=== PATIENT | male | born 1960 | race Caucasian/White ===

== ENCOUNTER 2023-01-05 20:29 | Inpatient (IN) | payer OTHER, SELFPAY ==
--- NOTE | ~2023-01-05 | CT_ITS ---
EXAMINATION: CT foot RT w con DATE: 01/06/2023 00:12 INDICATION: Right foot pain, soft tissue gas radiographs TECHNIQUE: Computed tomography (CT) of the right foot was performed without intravenous contrast. The dose-length product (DLP) was 446.34 mGy-cm. Automated exposure control and iterative reconstruction technique were employed. COMPARISON: None FINDINGS: There is a plantar soft tissue ulcer of the foot near the fourth metatarsophalangeal joint. Soft tissue gas extends dorsally between the fourth and fifth distal metatarsals into the soft tissu es adjacent dorsal soft tissues between the fourth and fifth metatarsophalangeal joints. A small amou nt of gas extends proximally along the shaft of the fourth metatarsal. No specific findings of osteom yelitis are seen. No fracture is identified. Mild osteoarthritis is noted. Posterior and plantar calc aneal enthesophytes are noted. IMPRESSION: 1. Plantar soft tissue ulcer of the foot near the fourth and fifth metatarsal phalangeal joints with soft tissue gas extending into the dorsal foot near the metatarsophalangeal joints. No specific findi ngs of osteomyelitis. Reviewed, dictated and finalized at location A. IMPRESSION: 1. Plantar soft tissue ulcer of the foot near the fourth and fifth metatarsal p halangeal joints with soft tissue gas extending into the dorsal foot near the m etatarsophalangeal joints. No specific findings of osteomyelitis.
--- NOTE | ~2023-01-05 | CT_ITS ---
Clinical Indication: Sepsis, atrial fibrillation CT Scan of the Chest with Contrast: Technique: Contiguous sections were acquired throughout the chest after intravenous administration of 100 cc of Omnipaque 350. Dose reduction technique was used on this scan by utilizing automated expos ure control and iterative reconstruction technique. The dose-length product (DLP) was 1029.57 mGy-cm. Findings: There is no evidence of any significant mediastinal, hilar or axillary lymphadenopathy. There is no f illing defect in the pulmonary arterial tree to suggest pulmonary embolus. There is no evidence of ao rtic dissection or aneurysm. No pericardial effusion. There is an 8 mm nodule in the superior segment left lower lobe. There is a focal groundglass opacity in the lingula (axial image 57). There is probable minimal left pleural fluid and minimal left basil ar atelectasis. Images through the upper abdomen reveal probable splenomegaly. Impression: No evidence of pulmonary embolus, aortic dissection, or aortic aneurysm. 8mm nodule in the superior segment of the left lower lobe. According to Fleischner Society criteria, for a low-risk patient, recommend follow-up CT scan at 6-12 months, then consider additional 18-[address] For a high-risk patients, follow-up CT scans at both 6-12 months and 18-24 months are recomme nded. Focal groundglass opacity lingula, nonspecific. Correlate for focal atelectasis versus pneumonitis. Probable splenomegaly. Minimal left pleural fluid. Reviewed, dictated and finalized at [facility]. Impression: No evidence of pulmonary embolus, aortic dissection, or aortic aneurysm. 8mm nodule in the superior segment of the left lower lobe. According to Fleisch ner Society criteria, for a low-risk patient, recommend follow-up CT scan at 6- 12 months, then consider additional 18-[address] For a high-risk patients, f ollow-up CT scans at both 6-12 months and 18-24 months are recommended. Focal groundglass opacity lingula, nonspecific. Correlate for focal atelectasis versus pneumonitis. Probable splenomegaly. Minimal left pleural fluid.
--- NOTE | ~2023-01-05 | XR_ITS ---
EXAMINATION: XR chest 1V portable DATE: 01/05/2023 21:57 INDICATION: Sepsis. Shortness of breath. TECHNIQUE: A single frontal view of the chest was obtained. COMPARISON: None. FINDINGS: There is mild atelectasis in left lower lung zone. No pleural effusion or pneumothorax. The heart size is normal. IMPRESSION: 1. Mild atelectasis in left lower lung zone. Reviewed, dictated and finalized at location E.
--- NOTE | ~2023-01-05 | CT_ITS ---
EXAMINATION: CT brain wo con DATE: 01/05/2023 22:21 INDICATION: Fall. Weakness. TECHNIQUE: Computed tomography (CT) of the head was performed without intravenous contrast. The mA wa s adjusted according to patient size. Iterative reconstruction technique was employed. The dose-lengt h product was 681.00 mGy-cm. COMPARISON: None FINDINGS: There is no intracranial hemorrhage, acute infarction, or abnormal intracranial mass lesion . There is an empty sella. The ventricles are normal in size. There is mild mucosal thickening in the paranasal sinuses. The mastoid air cells are normal. The orbits are normal. IMPRESSION: 1. No acute intracranial pathology. Reviewed, dictated and finalized at location E.
--- NOTE | ~2023-01-05 | US_ITS ---
Duplex Sonography of the bilateral lower extremities: Indication: High-risk for DVT, swelling Sagittal and transverse B-mode images as well as color-flow imaging were performed on the right and l eft femoral and popliteal veins. B-mode examination was done without and with compression in the tra nsverse plane. There is good visualization of the bilateral common femoral, proximal profunda femora l, superficial femoral, greater saphenous, and popliteal veins. Normal flow was seen on color-flow im aging. Normal compressibility was demonstrated. Visualized calf veins are patent bilaterally. Impression: No evidence of deep vein thrombosis involving either lower extremity. Reviewed, dictated and finalized at location M. Impression: No evidence of deep vein thrombosis involving either lower extremit y.
--- NOTE | ~2023-01-05 | CT_ITS ---
EXAMINATION: CT foot RT wo con DATE: 01/09/2023 16:51 INDICATION: Right foot abscess TECHNIQUE: High resolution computed tomography (CT) of the right foot was performed without intraveno us contrast. Additional sagittal and coronal reconstructions were performed. Automated exposure contr ol and iterative reconstruction technique were employed. The dose-length product was 486.94 mGy-cm. COMPARISON: CT dated 01/06/2023 FINDINGS: There is a large ulceration extending across the plantar aspect of the forefoot level of the head of the first through the fourth metatarsals. There is large amount of soft tissue gas tracking deep to t he ulceration along the lateral side of the fourth metatarsophalangeal joint and into the soft tissue s dorsal to the space between the heads of the fourth and fifth metatarsals and dorsal to the head of the fourth proximal phalanx. No loculated fluid collections to suggest abscess. There appear to be c ortical erosions at the lateral side of the head of the fourth metatarsal and lateral base of the fou rth proximal phalanx which is suspicious for osteomyelitis. 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 There are subarticular lucencies at the medial an d mid cuneiforms at the base of the fourth and fifth metatarsals which could represent subchondral cy stic change or potentially erosions such as in the setting of gout. Moderate-sized and plantar calcan eal spur and small Achilles calcaneal spur. Additional enthesophytes along the dorsal aspect of the n avicula. Moderate diffuse fatty atrophy of the intrinsic musculature of the foot along with extensive vascular calcification is likely related to known history of diabetes. IMPRESSION: 1. Large plantar sided ulceration in the forefoot with persistent extensive gas tracking dorsally int o the soft tissues about the fourth webspace, base of the fourth toe and head of the fourth metatarsa l. No discrete abscess identified. 2. New osteolysis at the lateral aspect of the head of the fourth metatarsal and base of the fourth p roximal phalanx suspicious for osteomyelitis. Reviewed, dictated and finalized at location A. IMPRESSION: 1. Large plantar sided ulceration in the forefoot with persistent extensive gas tracking dorsally into the soft tissues about the fourth webspace, base of the fourth toe and head of the fourth metatarsal. No discrete abscess identified. 2. New osteolysis at the lateral aspect of the head of the fourth metatarsal an d base of the fourth proximal phalanx suspicious for osteomyelitis.
--- NOTE | ~2023-01-05 | XR_ITS ---
EXAMINATION: XR foot RT 2V DATE: 01/05/2023 21:58 INDICATION: Right foot pain. Diabetic ulcer. TECHNIQUE: 2 views of right foot were obtained. COMPARISON: None. FINDINGS: Bone alignment is normal. No fracture. There is mild osteoarthritis of second proximal inte rphalangeal joint. There are enthesophytes at the posterior and plantar aspects of calcaneal tuberosi ty. There is an ulcer at the plantar aspect of the forefoot. There is soft tissue gas between the fou rth and fifth metatarsals and proximal phalanges. IMPRESSION: 1. No specific evidence of osteomyelitis. Reviewed, dictated and finalized at location E.
--- NOTE | ~2023-01-05 | XR_ITS ---
EXAMINATION: XR foot LT 2V DATE: 01/05/2023 21:58 INDICATION: Left foot pain. Diabetic ulcer. TECHNIQUE: 2 views of left foot were obtained. COMPARISON: None. FINDINGS: Bone alignment is normal. No fracture. There is mild osteoarthritis of talonavicular joint. There are enthesophytes at the posterior and plantar aspects of calcaneal tuberosity. IMPRESSION: 1. No evidence of osteomyelitis. Reviewed, dictated and finalized at location E.
[2023-01-05 20:32] VITALS: BP 94/52; PULSE 100; RESP 12; TEMP 38.7; O2SAT 94
--- NOTE | 2023-01-05 21:26 | ECG_ITS ---
Measurements Intervals [place] Rate: 95 P: CT: 0 QRS: -3 QRSD: 94 T: 91 QT: 337 QTc: 425 Interpretive Statements ATRIAL FIBRILLATION DELAYED PRECORDIAL R/S TRANSITION BASELINE ARTIFACT- I, II, III ABNORMAL ECG NO PREVIOUS ECG AVAILABLE FOR COMPARISON Electronically Signed On 01-06-2023 7:54:54 CDT by Sagar Hernandez D.O.
[2023-01-05 21:40] LABS: Basophils Percent Auto 0.1 % (0.2-1.2); Eosinophils Absolute Auto 0.1 K/mm3 (0-0.3); Eosinophils Percent Auto 0.7 % (0-4.4); Hematocrit 24.8 % (42.0-52.0); Hemoglobin 7.3 g/dL (14.0-18.0); Immature Granulocyte Absolute 0.14 K/mm3 (0.00-0.031); Immature Granulocyte Percent A 0.9 % (0-0.5); Lymphocytes Absolute Auto 0.68 K/mm3 (0.9-3.2); Lymphocytes Percent Auto 4.5 % (18.3-44.2); Mean Corpuscular HGB Conc 29.4 g/dl (32-36); Mean Corpuscular Volume 84.9 fl (80-100); Mean Platelet Volume 9.2 fl (7.4-10.4); Monocytes Absolute Auto 0.9 K/mm3 (0.1-0.6); Monocytes Percent Auto 5.6 % (2.6-8.5); Neutrophils Absolute Auto 13.4 K/mm3 (1.3-6.7); Neutrophils Percent Auto 88.2 % (45.5-73.1); Platelet Count Result 227 k/mm3 (150-375); Red Blood Count 2.92 M/mm3 (4.6-6.20); Red Cell Distribution Width 15.1 % (11.5-14.5); White Blood Count 15.2 K/mm3 (4.5-10.0)
[2023-01-05 21:45] VITALS: BP 112/79; PULSE 87; RESP 18; O2SAT 98
[2023-01-05 21:50] LABS: INR 1.3; Lactic Acid Reflex 2.8 mmol/L (0.7-2.0); Prothrombin Time 16.8 Seconds (11.1-14.7)
[2023-01-05 21:51] LABS: Partial Thromboplastin Time 35.8 SECONDS (22.3-36.8)
[2023-01-05 21:55] LABS: Alanine Aminotransferase 17 U/L (6-50); Albumin Level 3.2 g/dL (3.5-5.1); Alkaline Phosphatase 126 U/L (38-126); Anion Gap 8 mmol/L (8-16); Aspartate Amino Transferase 21 U/L (17-59); Bilirubin,Total 0.5 mg/dL (0.2-1.3); Blood Urea Nitrogen 26 mg/dL (9-20); Carbon Dioxide 24 mmol/L (22-30); Chloride 100 mmol/L (98-107); Estimated CRCL calculation 68 ml/min; Estimated Glomerular Filt Rate 56; Glucose 293 mg/dL (65-110); Lipase 80 U/L (23-300); Sodium 132 mmol/L (137-145)
[2023-01-05 22:01] LABS: Troponin I 0.012 ng/mL (0.000-0.034)
[2023-01-05 22:03] LABS: CRP 22.2 mg/dL (<1.0)
--- NOTE | 2023-01-05 22:04 | ED.WEAKNESS ---
HPI - Weakness General Chief complaint: Weakness <Glenda Zarate PA-C - Last Filed: 01/08/23 17:09> Stated complaint: WEAKNESS, FALL, FOOT WOUND <Glenda Zarate PA-C - Last Filed: 01/08/23 17:09> Time Seen by Provider: 01/05/23 21:35 <Glenda Zarate PA-C - Last Filed: 01/08/23 17:09> Source: patient <MANDA West Last Filed: 01/08/23 17:09> Mode of arrival: EMS <MANDA West Last Filed: 01/08/23 17:09> Limitations: other (poor historian) <Glenda Zarate PA-C - Last Filed: 01/08/23 17:09> History of Present Illness HPI Narrative: This is a 62 year old male that presents to the ER for generalized weakness. 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 He was trying to get up into his truck and felt so weak he fell. He doesn't think he hit his head, but does believe he lost consciousness. Reports feeling short of breath. Also reports a mild cough. Reports wounds on his feet that he sustained walking on hot concrete. Reports he has been seeing wound care for this. Was last seen about one week ago. He was on antibiotics for his wounds, but is not at this time. Noted to be febrile in the ED. Denies chest pain, abdominal pain, vomiting, diarrhea, or dysuria. <Glenda Zarate PA-C - Last Filed: 01/08/23 17:09> Related Data Home medications: Home Medications Medication Instructions Recorded Confirmed dulaglutide 1.5 mg/0.5 mL 1.5 mg subcut WEEKLY 01/06/23 01/06/23 subcutaneous pen injector (Trulicity) empagliflozin 25 mg tablet 25 mg PO DAILY 01/06/23 01/06/23 (Jardiance) gabapentin 300 mg capsule 300 mg PO DAILY 01/06/23 01/06/23 lisinopril 10 mg tablet 10 mg PO DAILY 01/06/23 01/06/23 metformin 1,000 mg tablet 1,000 mg PO DAILY 09/02/23 09/02/23 sitagliptin phosphate 100 mg 100 mg PO DAILY 01/06/23 01/06/23 tablet (Januvia) <Glenda Zarate PA-C - Last Filed: 01/08/23 17:09> Allergies/Adverse reactions: Allergies Allergy/AdvReac Type Severity Reaction Status Date / Time No Known Allergies Allergy Verified 01/05/23 22:20 <Glenda Zarate PA-C - Last Filed: 01/08/23 17:09> Review of Systems Review of Systems: CONSTITUTIONAL: Reports fever ENT: Denies rhinorrhea, congestion, sore throat CARDIOVASCULAR: Denies chest pain RESPIRATORY: Reports cough and dyspnea. GASTROINTESTINAL: Denies abdominal pain, nausea, vomiting, or diarrhea. GENITOURINARY: Denies dysuria NEUROLOGIC: Reports generalized weakness. <Glenda Zarate PA-C - Last Filed: 01/08/23 17:09> All systems reviewed & are unremarkable except as noted in HPI and below <Glenda Zarate PA-C - Last Filed: 01/08/23 17:09> [facility] Past Medical History Medical History: Medical History History of diabetes mellitus History of neuropathy <Glenda Zarate PA-C - Last Filed: 01/08/23 17:09> Social History Social History: Social History Smoking status: Never smoker Alcohol intake: never Substance use: never Substance use type: does not use Lack of Transportation: No Lack of Food: Never True Current Housing: I Have Housing Concerned About Future Housing: No Difficulty Paying Gas/Electric Bills: No Difficulty Paying for Meds: No Currently Unemployed: No Education: High School Diploma/GED Difficulty w/ Childcare or Family Care: No Spiritual care concerns: No <MANDA West Last Filed: 01/08/23 17:09> Exam Narrative: GENERAL: Well-appearing, well-nourished, and in no acute distress. HEAD: Normocephalic, atraumatic. EYES: PERRLA and EOMI. ENT: Nares clear, no rhinorrhea or epistaxis. Mucous membranes moist. Oropharynx without tonsillar hypertrophy exudate or other lesions. Bilateral TMs pearly rodrigez non-bulging NECK: Supple. No adenopathy or masses. CHEST: Clear to auscultation. No respiratory distress. No wheezes rales or rho
[2023-01-05 22:34] LABS: NT Pro B Type Natriuretic Pept 4970 pg/mL (19.9-100)
[2023-01-05] MEDS: ACETAMINOPHEN 500 MG TABLET 1000 MG PO (22:38)
[2023-01-05] MEDS: CEFEPIME 2 GM/NS 50 ML 2 GM/50 ML BAG IVPB (22:38)
[2023-01-05] MEDS: Please add drug allergy info to patient profile. 1 EACH XX (22:38)
[2023-01-05 23:13] LABS: Influenza A QL RT-PCR Negative (Negative); Influenza B QL RT-PCR Negative (Negative); SARS-CoV-2 RNA PCR Negative (Negative)
[2023-01-05] MEDS: metroNIDAZOLE 500 MG/ISO 100ML 500 MG/100 ML BAG 100 MG IVPB (23:36)
[2023-01-05 23:43] VITALS: BP 103/57; PULSE 84; RESP 20; TEMP 37.5; O2SAT 95
[2023-01-06] VITALS (8 sets, daily range): BP systolic 103–113; BP diastolic 54–70; PULSE 62–86; RESP 14–18; TEMP 36–37.6; O2SAT 95–100; BMI 37.8
[2023-01-06 00:37] LABS: Reflex Lactic Acid Yes or No Add Lactic
[2023-01-06 01:31] LABS: Appearance Urine Clear (Clear); Bilirubin Urine Negative (Negative); Blood Urine Negative (Negative); Color Urine Yellow (Yellow); Glucose Urine UA 3+ mg/dL (Negative); Ketones Urine Negative (Negative); Leukocyte Esterase Ur Negative LEU/UL (Negative); Nitrate Urine Negative (Negative); Protein Urine Negative (Negative); Specific Grav Ur 1.032 (1.001-1.035)
[2023-01-06 01:39] LABS: Estimated CRCL calculation 68 ml/min; Estimated Glomerular Filt Rate 56
[2023-01-06 01:40] LABS: Add Urine Microscopic? NO
[2023-01-06] MEDS: VANCOMYCIN 1,250 MG/NS 250 ML 1,250 MG/250 ML BAG 166.67 MG IVPB ×2 (01:45→03:19)
[2023-01-06] MEDS: SODIUM CHLORIDE 0.9% IV 1,000 ML 999 ML IV CONT (02:38)
[2023-01-06 06:33] LABS: Basophils Absolute Auto 0.1 K/mm3 (0.0-0.1); Basophils Percent Auto 0.4 % (0.2-1.2); Eosinophils Absolute Auto 0.2 K/mm3 (0-0.3); Eosinophils Percent Auto 1.8 % (0-4.4); Hematocrit 26.8 % (42.0-52.0); Hemoglobin 7.8 g/dL (14.0-18.0); Immature Granulocyte Absolute 0.12 K/mm3 (0.00-0.031); Immature Granulocyte Percent A 0.9 % (0-0.5); Lymphocytes Absolute Auto 1.37 K/mm3 (0.9-3.2); Lymphocytes Percent Auto 10.7 % (18.3-44.2); Mean Corpuscular HGB Conc 29.1 g/dl (32-36); Mean Corpuscular Hemoglobin 25.2 pg (26-34); Mean Corpuscular Volume 86.7 fl (80-100); Monocytes Absolute Auto 0.9 K/mm3 (0.1-0.6); Monocytes Percent Auto 6.9 % (2.6-8.5); Neutrophils Absolute Auto 10.2 K/mm3 (1.3-6.7); Neutrophils Percent Auto 79.3 % (45.5-73.1); Platelet Count Result 201 k/mm3 (150-375); Red Blood Count 3.09 M/mm3 (4.6-6.20); Red Cell Distribution Width 15.2 % (11.5-14.5); White Blood Count 12.8 K/mm3 (4.5-10.0)
[2023-01-06 06:48] LABS: Alanine Aminotransferase 16 U/L (6-50); Albumin Level 3.1 g/dL (3.5-5.1); Alkaline Phosphatase 116 U/L (38-126); Anion Gap 10 mmol/L (8-16); Aspartate Amino Transferase 21 U/L (17-59); Bilirubin,Total 0.6 mg/dL (0.2-1.3); Blood Urea Nitrogen 26 mg/dL (9-20); Calcium 7.9 mg/dL (8.4-10.2); Carbon Dioxide 24 mmol/L (22-30); Chloride 103 mmol/L (98-107); Estimated CRCL calculation 74 ml/min; Estimated Glomerular Filt Rate > 60; Glucose 187 mg/dL (65-110); Potassium 4.5 mmol/L (3.4-5.0); Sodium 137 mmol/L (137-145)
--- NOTE | 2023-01-06 06:54 | PC.NURSE ---
This patient, Shantanu Mccullough, was admitted to 3 [facility] Surg Room 311-01. Patient/family oriented to hospital policies and general routines including ID bracelet, bed and alarms, visiting hours, pain management, procedures, bathroom and other care routines, personal items, smoking policy, room service/diet, and visiting hours. Information on how to activate the Rapid Response Team has been discussed. Patient/Family are encouraged to report perceived risks to care and to ask questions if they do not understand what they are told or what they should do.
[2023-01-06 07:03] LABS: Anisocytosis 1+ (NORMAL); Hypochromasia 1+ (NORMAL); Microcytosis 1+ (NORMAL); Platelet Estimate Adequate (Adequate); Schistocytes None Seen (NORMAL)
[2023-01-06 07:07] LABS: CRP 22.5 mg/dL (<1.0)
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
[2023-01-06 07:37] LABS: Hemoglobin A1C 8.9 % (<5.7)
[2023-01-06] MEDS: SODIUM CHLORIDE 0.9% IV 1,000 ML 100 ML IV CONT (07:43)
[2023-01-06 07:44] LABS: Glucose Point of Care 198 mg/dl (65-105)
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
--- NOTE | 2023-01-06 09:50 | ECHO_ITS ---
Patient Info Name: Shantanu Mccullough Age: 62 years : 1960 Gender: Male Ht: 70 in Wt: 278 lbs BSA: 2.55 m2 HR: 77 bpm BP: 110 / 63 mmHg Heart Rhythm: Atrial Fibrillation Technical Quality: Fair Exam Date: 01/06/2023 11:22 AM Exam Location: [facility] Patient Status: Inpatient Admit Date: 01/06/2023 Staff Ordering Physician: Narinder Marcus MD Frit Mixer: Sue Gilliland RDCS Attending Provider: Rosana Fuentes DO Exam Type: CA echo dop color flow w con Study Info Indications - dizziness Complete two-dimensional, color flow and Doppler transthoracic echocardiogram is performed with contrast to opacify the left ventricle and to improve the deliniation of the left ventricle endocardial borders. Contrast/Agitated Saline Contrast/Ag. Saline: Definity Amount: 2.00 ml Administered By: Sue Gilliland RDCS Existing IV Access: Yes IV Access Condition: patent with no signs of infiltration Summary 1. Left ventricular chamber dimension is normal. 2. Left ventricular systolic function is normal, estimated at 60-65%. 3. The left ventricular diastolic function is abnormal. 4. E/e' 13 is mildly elevated. 5. Atrial fibrillation. 6. Left atrial chamber dimension is moderately enlarged. 7. Right atrial chamber dimension is mildly enlarged. 8. There is mild tricuspid valve regurgitation. 9. No pulmonary hypertension, estimated pulmonary arterial systolic pressure is 34 mmHg. 10. Dilated inferior vena cava with >50% collapse upon inspiration consistent with elevated right atrial pressure, 10 mmHg. Left Ventricle E/e' 13 is mildly elevated. Atrial fibrillation. Left ventricular chamber dimension is normal. Left ventricular systolic function is normal, estimated at 60-65%. The left ventricular diastolic function is abnormal. Right Ventricle Right ventricular systolic function is normal and with normal TAPSE 1.9 cm. Right ventricular chamber dimension is normal. Left Atria Left atrial chamber dimension is moderately enlarged. Right Atria Right atrial chamber dimension is mildly enlarged. Aortic Valve The aortic valve is trileaflet. There is no aortic valve stenosis. There is no aortic valve regurgitation. Pulmonic Valve There is no pulmonic regurgitation. Mitral Valve There is no mitral valve stenosis. There is no mitral valve regurgitation. Tricuspid Valve There is mild tricuspid valve regurgitation. No pulmonary hypertension, estimated pulmonary arterial systolic pressure is 34 mmHg. Pericardium/Pleural There is no pericardial effusion. Inferior Vena Cava Dilated inferior vena cava with >50% collapse upon inspiration consistent with elevated right atrial pressure, 10 mmHg. Aorta The aortic root size at the sinus of Valsalva is normal. Left Ventricular Outflow Tract Name Value Normal LVOT 2D LVOT Diameter 2.02 cm LVOT Doppler LVOT Peak Gradient 4 mmHg LVOT Mean Gradient 2 mmHg LVOT VTI 20.00 cm LVOT VTI/AV VTI Ratio 0.76 LVOT Stroke Volume 64.19 ml LVOT CO
[2023-01-06 10:11] LABS: Iron 31 ug/dL (49-181)
[2023-01-06] MEDS: CEFEPIME 2 GM/NS 50 ML 2 GM/50 ML BAG IVPB ×2 (10:13→17:46)
[2023-01-06 10:20] LABS: Percent Iron Saturation 13 % (20-50)
[2023-01-06 11:19] LABS: Glucose Point of Care 178 mg/dl (65-105)
[2023-01-06] MEDS: PERFLUTREN LIPID MICROSPHERES 1.5 ML VIAL DILUTED TO 10 ML TOTAL VOLUME IV PUSH (11:53)
[2023-01-06] MEDS: metroNIDAZOLE 500 MG/ISO 100ML 500 MG/100 ML BAG 100 MG IVPB ×2 (12:21→22:05)
--- NOTE | 2023-01-06 13:32 | IVDEFINITY ---
Prior to administration of IV Definity the patient was educated on the risks and benefits of the imaging enhancing agent including potential adverse side effects. The patient verbalized understanding. Allergies were verified. No exclusion criteria were identified and at least one of the following inclusion criteria were met: 1) physician request, 2) patient technically difficult to image (per the [place] [employer]chocardi[employer] guidelines of two or more segments not discernable within the apical view), or 3) questionable left ventricular function. ?
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
[2023-01-06] MEDS: ACETAMINOPHEN 325 MG TABLET 650 MG PO (17:45)
[2023-01-06] MEDS: HEPARIN SODIUM 5,000 UNITS/ML VIAL 5000 UNITS SUB-Q (17:46)
--- NOTE | 2023-01-06 18:46 | PC.NURSE ---
at 1815 as I was walkinginto pt room to give antibiotic, this nurse saw pt with a hand full of pills and he put them in his mouth and took them before i was able to stop him. pt had all the pill bottles out on his bedside table. pt stated that brought meds in this afternoon. I educated pt that he is not to take his home medications and that we monitor what med the pt takes. pt states understanding. pt also informed this nurse that he took his weekly shot of trulicity before taking pills. the medication bottles at bedside were metformin, lisinopril, jardiance, gabapentin, and prevastation. unsure about how many pills pt took of each. The MD was immediately made aware. md order was to monitor pt. will continue to monitor. home meds were placed in the med room.
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
[2023-01-06] MEDS: METOPROLOL TARTRATE 12.5 MG TABLET PO (20:56)
[2023-01-06] MEDS: INSULIN ASPART (*BKC) 100 UNITS/ML SUB-Q (20:57)
[2023-01-06 21:07] LABS: Glucose Point of Care 279 mg/dl (65-105)
[2023-01-06 22:32] LABS: Glucose Point of Care 212 mg/dl (65-105)
[2023-01-07] VITALS (11 sets, daily range): BP systolic 104–118; BP diastolic 57–70; PULSE 66–83; RESP 13–20; TEMP 36.3–37.2; O2SAT 98
[2023-01-07] MEDS: CEFEPIME 2 GM/NS 50 ML 2 GM/50 ML BAG IVPB ×3 (02:08→17:59)
[2023-01-07] MEDS: SODIUM CHLORIDE 0.9% IV 1,000 ML 100 ML IV CONT ×2 (02:11→18:03)
[2023-01-07] MEDS: metroNIDAZOLE 500 MG/ISO 100ML 500 MG/100 ML BAG 100 MG IVPB ×3 (03:27→20:20)
[2023-01-07 07:33] LABS: Glucose Point of Care 155 mg/dl (65-105)
--- NOTE | 2023-01-07 08:00 | ECG_ITS ---
Measurements Intervals [place] Rate: 74 P: MT: 0 QRS: 27 QRSD: 81 T: 76 QT: 366 QTc: 407 Interpretive Statements ATRIAL FIBRILLATION LOW QRS VOLTAGE- DIFFUSE LEADS BASELINE ARTIFACT- I, II, AVR ABNORMAL ECG COMPARED TO ECG 01/05/2023 20:39:01 NO SIGNIFICANT CHANGES Electronically Signed On 01-07-2023 8:36:43 CDT by Sagar Hernandez D.O.
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
[2023-01-07] MEDS: ASPIRIN 325 MG ENTERIC TABLET PO (08:43)
[2023-01-07] MEDS: METOPROLOL TARTRATE 12.5 MG TABLET PO ×2 (08:43→20:20)
[2023-01-07] MEDS: GABAPENTIN 300 MG CAPSULE PO (08:43)
[2023-01-07] MEDS: ENOXAPARIN 40 MG/0.4 ML SYRINGE SUB-Q (08:47)
[2023-01-07 09:47] LABS: Basophils Absolute Auto 0.1 K/mm3 (0.0-0.1); Basophils Percent Auto 0.6 % (0.2-1.2); Eosinophils Absolute Auto 0.2 K/mm3 (0-0.3); Eosinophils Percent Auto 1.4 % (0-4.4); Hematocrit 26.1 % (42.0-52.0); Hemoglobin 7.4 g/dL (14.0-18.0); Immature Granulocyte Absolute 0.15 K/mm3 (0.00-0.031); Immature Granulocyte Percent A 1.2 % (0-0.5); Lymphocytes Absolute Auto 1.04 K/mm3 (0.9-3.2); Lymphocytes Percent Auto 8.3 % (18.3-44.2); Mean Corpuscular HGB Conc 28.4 g/dl (32-36); Mean Corpuscular Hemoglobin 24.9 pg (26-34); Mean Corpuscular Volume 87.9 fl (80-100); Mean Platelet Volume 9.2 fl (7.4-10.4); Monocytes Absolute Auto 0.8 K/mm3 (0.1-0.6); Monocytes Percent Auto 6.1 % (2.6-8.5); Neutrophils Absolute Auto 10.4 K/mm3 (1.3-6.7); Neutrophils Percent Auto 82.4 % (45.5-73.1); Nucleated Red Blood Cells Perc 0.2 % (0.0-0.2); Platelet Count Result 217 k/mm3 (150-375); Red Blood Count 2.97 M/mm3 (4.6-6.20); Red Cell Distribution Width 15.2 % (11.5-14.5); White Blood Count 12.6 K/mm3 (4.5-10.0)
[2023-01-07 09:54] LABS: Anion Gap 10 mmol/L (8-16); Blood Urea Nitrogen 24 mg/dL (9-20); Calcium 7.8 mg/dL (8.4-10.2); Carbon Dioxide 20 mmol/L (22-30); Chloride 104 mmol/L (98-107); Estimated CRCL calculation 83 ml/min; Estimated Glomerular Filt Rate > 60; Glucose 187 mg/dL (65-110); Potassium 5.1 mmol/L (3.4-5.0); Sodium 134 mmol/L (137-145)
[2023-01-07 10:12] LABS: Vancomycin Trough 15.6 ug/mL (10.0-20.0)
[2023-01-07 10:20] LABS: Anisocytosis 1+ (NORMAL); Hypochromasia 1+ (NORMAL); Platelet Estimate Adequate (Adequate)
--- NOTE | 2023-01-07 10:20 | PM.PNGS ---
Progress Note: A&P Assessment and Plan (1) Wound, open, foot: Code(s): S91.309A - Unspecified open wound, unspecified foot, initial encounter Status: Acute Assessment and Plan: cont local wound care c silver gel, no acute surgical indications at this point Subjective Subjective Date/Time Seen: 01/07/23 10:20 Interval history: no acute issues overnight Review of Systems Review of Systems: All systems reviewed & are unremarkable except as noted in HPI and below Exam Const: General: cooperative, comfortable and no acute distress Resp: Auscultation: clear to auscultation bilaterally Cardio: Rate: regular rate Rhythm: regular rhythm GI: Inspection: normal to inspection Extrem: Other: bilateral feet - dressing C/D/I Objective Data Vital Signs Vital Signs: Vital Signs - 24 hr 01/06/23 14:00 01/06/23 16:00 01/06/23 20:56 Temperature 36.0 C L Pulse Rate 69 68 79 Respiratory Rate 16 Blood Pressure 111/64 Pulse Oximetry 98 Oxygen Delivery 01/06/23 22:00 01/06/23 20:00 01/06/23 20:00 Temperature 37.6 C Pulse Rate 86 79 Respiratory Rate 14 Blood Pressure 103/66 Pulse Oximetry 95 Oxygen Delivery Room Air 01/07/23 00:00 01/07/23 04:00 01/07/23 05:41 Temperature 37.2 C Pulse Rate 71 77 75 Respiratory Rate 13 Blood Pressure 112/57 L Pulse Oximetry 98 Oxygen Delivery 01/07/23 08:43 Temperature Pulse Rate 70 Respiratory Rate Blood Pressure Pulse Oximetry Oxygen Delivery Intake/Output Intake/Output: Intake & Output 01/04/23 01/05/23 01/06/23 01/07/23 23:59 23:59 23:59 23:59 Intake Total 50 3880 1140 Output Total 800 1200 Balance 50 3080 -60 Meds/Results Medications: Active Medications Generic Name Dose Route Start Last Admin Trade Name Freq PRN Reason Stop Dose Admin Acetaminophen 650 mg 01/06/23 17:21 01/06/23 17:45 Acetaminophen 325 Mg Tablet PO 650 mg Q6H PRN Administration Mild Pain (1-3) or Fever Aspirin 325 mg 01/07/23 09:00 01/07/23 08:43 Aspirin 325 Mg Enteric Tablet PO 325 mg QAM [facility] Administration Dextrose 12.5 gm 01/06/23 05:47 Dextrose 50% 25 Gm/50 Ml Syringe IV PUSH PRN PRN Hypoglycemia Protocol Dextrose 12.5 gm 01/06/23 09:47 Dextrose 50% 25 Gm/50 Ml Syringe IV PUSH PRN PRN Hypoglycemia Protocol Enoxaparin Sodium 40 mg 01/07/23 09:00 01/07/23 08:47 Enoxaparin 40 Mg/0.4 Ml Syringe SUB-Q 40 mg DAILY [facility] Administration Gabapentin 300 mg 01/07/23 09:00 01/07/23 08:43 Gabapentin 300 Mg Capsule PO 300 mg DAILY [facility] Administration Glucagon 1 mg 01/06/23 05:47 Glucagon For Inj 1 Mg Vial IM PRN PRN Hypoglycemia Protocol Glucagon 1 mg 01/06/23 09:47 Glucagon For Inj 1 Mg Vial IM PRN PRN Hypoglycemia Protocol Glucose 15 gm 01/06/23 05:47 Glucose Oral Gel 15 Gm Of Glucse In 37.5 Gm Tube PO PRN PRN Hypoglycemia Protocol Glucose 15 gm 01/06/23 09:47 Glucose Oral Gel 15 Gm Of Glucse In 37.5 Gm Tube PO PRN PRN Hypoglycemia Protocol Hydromorphone HCl 0.5 mg 01/06/23 09:44 Hydromorphone Hcl Inj (*Crx) 1 Mg/Ml Syr IV PUSH Q4H PRN Chest Pain Vancomycin HCl 1,500 mg in 500 mls @ 250 mls/hr 01/06/23 17:00 01/06/23 20:22 Vancomycin 1,500 Mg/D5w 500 Ml IVPB Infused Q18H [facility] Infusion Dextrose 1,000 mls @ 100 mls/hr 01/06/23 05:47 Dextrose 5% 1,000 Ml IVPB PRN PRN Hypoglycemia Protocol Sodium Chloride 1,000 mls @ 100 mls/hr 01/06/23 05:50 01/07/23 02:11 Normal Saline Iv IV CONT 100 mls/hr .Q10H [facility] Administration Metronidazole 500 mg in 100 mls @ 100 mls/hr 01/06/23 12:00 01/07/23 04:27 Flagyl 500 Mg/Iso Soln 100 Ml IVPB Infused Q8H [facility] Infusion Cefepime HCl 2 gm in 50 mls @ 100 mls/hr 01/06/23 10:00 01/07/23 10:10 Maxipime 2 Gm/Ns 50 Ml IVPB 100 mls
[2023-01-07 10:21] LABS: Poikilocytosis 1+ (NORMAL); Schistocytes None Seen (NORMAL)
[2023-01-07 11:30] LABS: Glucose Point of Care 186 mg/dl (65-105)
[2023-01-07 17:09] LABS: Glucose Point of Care 185 mg/dl (65-105)
[2023-01-07] MEDS: SILVER SULFADIAZINE 1% CR 400 GM JAR (*BKC) 1 APPLIC TOPICAL (18:00)
[2023-01-07] MEDS: INSULIN ASPART (*BKC) 100 UNITS/ML SUB-Q (20:23)
[2023-01-07 21:12] LABS: Glucose Point of Care 249 mg/dl (65-105)
[2023-01-07 22:09] LABS: Glucose Point of Care 217 mg/dl (65-105)
[2023-01-08] VITALS (12 sets, daily range): BP systolic 78–118; BP diastolic 32–68; PULSE 64–74; RESP 14–21; TEMP 35.7–36.6; O2SAT 98–100
[2023-01-08] MEDS: CEFEPIME 2 GM/NS 50 ML 2 GM/50 ML BAG IVPB ×2 (01:54→08:59)
[2023-01-08] MEDS: metroNIDAZOLE 500 MG/ISO 100ML 500 MG/100 ML BAG 100 MG IVPB (03:28)
[2023-01-08 07:10] LABS: Basophils Absolute Auto 0.1 K/mm3 (0.0-0.1); Basophils Percent Auto 0.5 % (0.2-1.2); Eosinophils Absolute Auto 0.2 K/mm3 (0-0.3); Eosinophils Percent Auto 1.8 % (0-4.4); Hematocrit 26.3 % (42.0-52.0); Hemoglobin 7.4 g/dL (14.0-18.0); Immature Granulocyte Absolute 0.21 K/mm3 (0.00-0.031); Immature Granulocyte Percent A 1.6 % (0-0.5); Lymphocytes Absolute Auto 1.52 K/mm3 (0.9-3.2); Lymphocytes Percent Auto 11.4 % (18.3-44.2); Mean Corpuscular HGB Conc 28.1 g/dl (32-36); Mean Corpuscular Hemoglobin 24.4 pg (26-34); Mean Corpuscular Volume 86.8 fl (80-100); Mean Platelet Volume 9.4 fl (7.4-10.4); Monocytes Absolute Auto 0.9 K/mm3 (0.1-0.6); Monocytes Percent Auto 6.5 % (2.6-8.5); Neutrophils Absolute Auto 10.4 K/mm3 (1.3-6.7); Neutrophils Percent Auto 78.2 % (45.5-73.1); Nucleated Red Blood Cells Perc 0.2 % (0.0-0.2); Platelet Count Result 254 k/mm3 (150-375); Red Blood Count 3.03 M/mm3 (4.6-6.20); Red Cell Distribution Width 15.4 % (11.5-14.5); White Blood Count 13.3 K/mm3 (4.5-10.0)
[2023-01-08 07:27] LABS: Anion Gap 10 mmol/L (8-16); Blood Urea Nitrogen 25 mg/dL (9-20); Calcium 7.8 mg/dL (8.4-10.2); Carbon Dioxide 20 mmol/L (22-30); Chloride 104 mmol/L (98-107); Estimated CRCL calculation 83 ml/min; Estimated Glomerular Filt Rate > 60; Glucose 167 mg/dL (65-110); Potassium 4.7 mmol/L (3.4-5.0); Sodium 134 mmol/L (137-145)
[2023-01-08 07:31] LABS: Glucose Point of Care 189 mg/dl (65-105)
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
[2023-01-08 08:00] LABS: Anisocytosis 1+ (NORMAL); Hypochromasia 1+ (NORMAL); Microcytosis 1+ (NORMAL); Platelet Estimate Adequate (Adequate); Schistocytes None Seen (NORMAL)
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
[2023-01-08] MEDS: ENOXAPARIN 40 MG/0.4 ML SYRINGE SUB-Q (08:58)
[2023-01-08] MEDS: METOPROLOL TARTRATE 12.5 MG TABLET PO ×2 (08:59→22:49)
[2023-01-08] MEDS: ASPIRIN 325 MG ENTERIC TABLET PO (08:59)
[2023-01-08] MEDS: GABAPENTIN 300 MG CAPSULE PO (08:59)
[2023-01-08] MEDS: SILVER SULFADIAZINE 1% CR 400 GM JAR (*BKC) 1 APPLIC TOPICAL ×2 (09:04→22:49)
[2023-01-08 11:25] LABS: Glucose Point of Care 215 mg/dl (65-105)
[2023-01-08] MEDS: metroNIDAZOLE 250 MG TABLET 500 MG PO ×2 (13:00→22:49)
[2023-01-08] MEDS: INSULIN ASPART (*BKC) 100 UNITS/ML SUB-Q (13:00)
[2023-01-08 16:47] LABS: Glucose Point of Care 186 mg/dl (65-105)
[2023-01-08 21:54] LABS: Glucose Point of Care 184 mg/dl (65-105)
[2023-01-09] VITALS (10 sets, daily range): BP systolic 119–123; BP diastolic 63–82; PULSE 63–76; RESP 16–22; TEMP 35.7–36.6; O2SAT 97–99
[2023-01-09] MEDS: SODIUM CHLORIDE 0.9% IV 1,000 ML 100 ML IV CONT ×2 (04:34→17:07)
[2023-01-09] MEDS: metroNIDAZOLE 250 MG TABLET 500 MG PO ×3 (04:35→20:53)
[2023-01-09 06:28] LABS: Basophils Absolute Auto 0.1 K/mm3 (0.0-0.1); Basophils Percent Auto 0.4 % (0.2-1.2); Eosinophils Absolute Auto 0.3 K/mm3 (0-0.3); Eosinophils Percent Auto 1.9 % (0-4.4); Hematocrit 27.9 % (42.0-52.0); Hemoglobin 7.9 g/dL (14.0-18.0); Immature Granulocyte Absolute 0.31 K/mm3 (0.00-0.031); Immature Granulocyte Percent A 2.2 % (0-0.5); Lymphocytes Absolute Auto 1.32 K/mm3 (0.9-3.2); Lymphocytes Percent Auto 9.5 % (18.3-44.2); Mean Corpuscular HGB Conc 28.3 g/dl (32-36); Mean Corpuscular Hemoglobin 24.7 pg (26-34); Mean Corpuscular Volume 87.2 fl (80-100); Mean Platelet Volume 9.2 fl (7.4-10.4); Monocytes Absolute Auto 0.8 K/mm3 (0.1-0.6); Neutrophils Absolute Auto 11.1 K/mm3 (1.3-6.7); Nucleated Red Blood Cells Perc 0.2 % (0.0-0.2); Platelet Count Result 266 k/mm3 (150-375); Red Cell Distribution Width 15.4 % (11.5-14.5); White Blood Count 13.9 K/mm3 (4.5-10.0)
[2023-01-09 06:57] LABS: Anion Gap 9 mmol/L (8-16); Blood Urea Nitrogen 22 mg/dL (9-20); Calcium 7.9 mg/dL (8.4-10.2); Carbon Dioxide 20 mmol/L (22-30); Chloride 104 mmol/L (98-107); Estimated CRCL calculation 91 ml/min; Estimated Glomerular Filt Rate > 60; Glucose 162 mg/dL (65-110); Potassium 4.8 mmol/L (3.4-5.0); Sodium 133 mmol/L (137-145)
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
[2023-01-09 08:08] LABS: Glucose Point of Care 155 mg/dl (65-105)
[2023-01-09] MEDS: ENOXAPARIN 40 MG/0.4 ML SYRINGE SUB-Q (08:35)
[2023-01-09] MEDS: METOPROLOL TARTRATE 12.5 MG TABLET PO ×2 (08:36→20:53)
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
[2023-01-09] MEDS: GABAPENTIN 300 MG CAPSULE PO (08:37)
[2023-01-09] MEDS: ASPIRIN 325 MG ENTERIC TABLET PO (08:37)
[2023-01-09] MEDS: SILVER SULFADIAZINE 1% CR 400 GM JAR (*BKC) 1 APPLIC TOPICAL (08:38)
[2023-01-09] MEDS: SOD HYPOCHLORITE 1/4 STRENGTH 473 ML 1 APPLIC TOPICAL (10:03)
[2023-01-09 11:47] LABS: Glucose Point of Care 192 mg/dl (65-105)
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
[2023-01-09 16:50] LABS: Glucose Point of Care 178 mg/dl (65-105)
[2023-01-09 20:02] LABS: Glucose Point of Care 211 mg/dl (65-105)
[2023-01-09] MEDS: INSULIN ASPART (*BKC) 100 UNITS/ML SUB-Q (20:55)
[2023-01-10] VITALS (11 sets, daily range): BP systolic 102–112; BP diastolic 55–67; PULSE 56–84; RESP 16; TEMP 35.6–36.5; O2SAT 98–100
[2023-01-10] MEDS: SODIUM CHLORIDE 0.9% IV 1,000 ML 100 ML IV CONT ×2 (05:47→20:41)
[2023-01-10] MEDS: metroNIDAZOLE 250 MG TABLET 500 MG PO ×3 (05:47→20:44)
[2023-01-10] MEDS: SOD HYPOCHLORITE 1/4 STRENGTH 473 ML 1 APPLIC TOPICAL ×3 (05:48→20:42)
[2023-01-10 07:42] LABS: Glucose Point of Care 154 mg/dl (65-105)
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
[2023-01-10] MEDS: GABAPENTIN 300 MG CAPSULE PO (08:41)
[2023-01-10] MEDS: ASPIRIN 325 MG ENTERIC TABLET PO (08:41)
[2023-01-10] MEDS: METOPROLOL TARTRATE 12.5 MG TABLET PO ×2 (08:41→20:42)
[2023-01-10] MEDS: ENOXAPARIN 40 MG/0.4 ML SYRINGE SUB-Q (08:41)
[2023-01-10 10:59] LABS: Vancomycin Trough 17.5 ug/mL (10.0-20.0)
[2023-01-10 11:24] LABS: Glucose Point of Care 231 mg/dl (65-105)
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
[2023-01-10] MEDS: INSULIN ASPART (*BKC) 100 UNITS/ML SUB-Q ×2 (12:02→17:31)
[2023-01-10 13:11] LABS: Estimated CRCL calculation 112 ml/min; Estimated Glomerular Filt Rate > 60
[2023-01-10 16:33] LABS: Glucose Point of Care 244 mg/dl (65-105)
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
[2023-01-10 20:57] LABS: Glucose Point of Care 199 mg/dl (65-105)
[2023-01-10 21:20] LABS: IFOB Positive Control Positive; Immunochemical Fecal Occult Bl Positive (N)
[2023-01-11] VITALS (15 sets, daily range): BP systolic 96–130; BP diastolic 44–74; PULSE 60–80; RESP 14–20; TEMP 35.9–36.8; O2SAT 93–98
[2023-01-11] MEDS: metroNIDAZOLE 250 MG TABLET 500 MG PO ×3 (05:40→21:54)
[2023-01-11] MEDS: SODIUM CHLORIDE 0.9% IV 1,000 ML 100 ML IV CONT ×2 (05:42→13:59)
[2023-01-11 06:56] LABS: Hematocrit 27.8 % (42.0-52.0); Hemoglobin 7.7 g/dL (14.0-18.0)
--- NOTE | 2023-01-11 07:47 | PC.NURSE ---
To OR per [Curly], IV [20 L FA and 18 R ac]. Report given to [ ].
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
[2023-01-11 08:07] LABS: Glucose Point of Care 160 mg/dl (65-105)
--- NOTE | 2023-01-11 09:22 | WPDANESEPPF ---
Anes - Initial Pre Proc Eval Procedure: Operation Date: 01/11/23 09:30 Proposed Procedures p Debridement Bilateral Foot Wounds - Regan Roman MD Date/Time: 01/11/23 09:22 Surgeon: Rosana Fuentes DO Pre Op Diagnosis: Sepsis Patient Data Age: 62 Gender: M Height: 1.83 m Weight: 126.4 kg Last Vital Signs Temp 36.8 C 01/11/23 08:11 Pulse 69 01/11/23 08:11 Resp 16 01/11/23 08:11 BP 104/55 L 01/11/23 08:11 Pulse Ox 98 01/11/23 08:11 O2 Del Method Room Air 01/11/23 08:11 Allergies Allergy/AdvReac Type Severity Reaction Status Date / Time No Known Allergies Allergy Verified 01/11/23 08:21 Home Medications Medication Instructions Recorded Confirmed Type dulaglutide 1.5 mg/0.5 mL 1.5 mg subcut WEEKLY 01/06/23 01/06/23 History subcutaneous pen injector (Trulicity) empagliflozin 25 mg tablet 25 mg PO DAILY 01/06/23 01/06/23 History (Jardiance) gabapentin 300 mg capsule 300 mg PO DAILY 01/06/23 01/06/23 History lisinopril 10 mg tablet 10 mg PO DAILY 01/06/23 01/06/23 History metformin 1,000 mg tablet 1,000 mg PO DAILY 01/06/23 01/06/23 History sitagliptin phosphate 100 mg 100 mg PO DAILY 01/06/23 01/06/23 History tablet (Januvia) Laboratory Tests 01/10/23 01/10/23 01/10/23 10:04 11:20 16:31 Hgb Hct Creatinine 0.80 mg/dL (0.7-1.3) Estim Creat Clear Calc 112 ml/min Estimated GFR > 60 (59 - ) POC Capillary Glucose 231 H mg/dl 244 H mg/dl (65-105) (65-105) Stl Occult Blood (IFOB) Vancomycin Trough 17.5 ug/mL (10.0-20.0) 01/10/23 01/10/23 01/11/23 20:16 20:30 06:02 Hgb 7.7 L g/dL (14.0-18.0) Hct 27.8 L % (42.0-52.0) Creatinine Estim Creat Clear Calc Estimated GFR POC Capillary Glucose 199 H mg/dl (65-105) Stl Occult Blood (IFOB) Positive H (N) Vancomycin Trough 01/11/23 08:04 Hgb Hct Creatinine Estim Creat Clear Calc Estimated GFR POC Capillary Glucose 160 H mg/dl (65-105) Stl Occult Blood (IFOB) Vancomycin Trough Patient hx anesthesia problems: none Family hx anesthesia problems: none Results Review: All pre-operative results and documents have been reviewed as part of the pre-operative evaluation. [facility] Past Medical History Medical History History of diabetes mellitus History of neuropathy Social History Social History Smoking status: Never smoker Alcohol intake: never Substance use: never Substance use type: does not use Lack of Transportation: No Lack of Food: Never True Current Housing: I Have Housing Concerned About Future Housing: No Difficulty Paying Gas/Electric Bills: No Difficulty Paying for Meds: No Currently Unemployed: No Education: High School Diploma/GED Difficulty w/ Childcare or Family Care: No Spiritual care concerns: No Anes - Eval Final PreProcedure Day of Procedure 01/11/23 09:22 Patient weight: obese Heart: regular rate and rhythm Lungs: decreased breath sounds Airway: Mallampati scale class II Neurological: alert and oriented Last oral intake: >/= 8 hours ASA classification: III Emergent: no Anesthetic plan: proceed Anesthesia type and monitoring: general LMA and standard monitoring Results Review: All pre-operative results and documents have been reviewed as part of the pre-operative evaluation. Informed Consent: The patient's anesthetic plan and its attendant risks and benefits were discussed with the patient/family/POA. Questions were solicited and answers provided to the satisfaction of the patient/family/POA.
--- NOTE | 2023-01-11 09:27 | WPDHPUPDATE1 ---
History and Physical Update Update Date/Time: 01/11/23 09:27 History and Physical has been reviewed, including an updated exam of the patient. There are NO changes in the patient's condition. Risks, benefits, and alternatives have been discussed and questions answered. Patient agrees to proceed with procedure.
[2023-01-11] MEDS: LACTATED RINGERS 1,000 ML 30 ML IV CONT ×2 (09:31→10:42)
--- NOTE | 2023-01-11 10:47 | PM.IMPN ---
Progress Note: A&P Assessment and Plan (1) Severe sepsis: Code(s): A41.9 - Sepsis, unspecified organism; R65.20 - Severe sepsis without septic shock Status: Acute (2) Diabetic foot infection: Code(s): E11.628 - Type 2 diabetes mellitus with other skin complications; L08.9 - Local infection of the skin and subcutaneous tissue, unspecified Status: Acute (3) Atrial fibrillation: Qualifiers: Atrial fibrillation type: unspecified Qualified Code(s): I48.91 - Unspecified atrial fibrillation Code(s): I48.91 - Unspecified atrial fibrillation Status: Acute (4) Cellulitis of right foot: Code(s): L03.115 - Cellulitis of right lower limb Status: Acute (5) Chronic anemia: Code(s): D64.9 - Anemia, unspecified Status: Acute (6) Acute renal failure: Code(s): N17.9 - Acute kidney failure, unspecified Status: Acute (7) Uncontrolled type 2 diabetes circulatory disorder erectile dysfunction: Status: Acute (8) Atrial fibrillation with RVR: Code(s): I48.91 - Unspecified atrial fibrillation Status: Acute (9) Lung nodule: Code(s): R91.1 - Solitary pulmonary nodule Status: Acute Plan Sepsis Improved Cultures noted Continue antibiotics Diabetic ulcer and cellulitis bilateral feet Debridement planned Continue wound care Continue antibiotics AFib RVR No history of AFib RVR Will need to follow up with Cardiology on discharge Uncontrolled type 2 diabetes Hold oral medication Start insulin sliding scale a.c. q.h.s. Acute renal failure Monitor Chronic anemia No obvious bleeding Follow-up CBC Lung nodule 8mm nodule in the superior segment of the left lower lobe. According to Fleischner Society criteria, for a low-risk patient, recommend follow-up CT scan at 6-12 months, then consider additional 18-[address] For a high-risk patients, follow-up CT scans at both 6-12 months and 18-24 months are recommended. Recommend patient to follow-up with primary care doctor Patient may stay more than 2 midnights in the hospital and Subjective Date/time seen: 01/11/23 10:47 Interval history: No new complaints Exam Narrative: GENERAL: Pleasant, in no acute distress. Well-nourished. - EYES: EOMI. Anicteric. - HENT: Moist mucous membranes. - LUNGS: Clear to auscultation bilaterally, no wheezing, rhonchi, or rales. - CARDIOVASCULAR: Regular rhythm. No murmur. No JVD. - ABDOMEN: Soft, non-tender and non-distended. No palpable masses. - EXTREMITIES: No edema. Peripheral pulses 2+. Non-tender. - NEUROLOGIC: No focal neurological deficits. CN II-XII grossly intact. - PSYCHIATRIC: Awake, Alert and oriented x 3. Appropriate mood and affect. - SKIN: Nonhealing ulcer bilateral feet, some purulent discharge from right foot, swelling tender erythema bilateral feet - LYMPH: No cervical lymphadenopathy. Objective Data Vital Signs Vital Signs: Vital Signs - 24 hr 01/10/23 12:00 01/10/23 14:00 01/10/23 16:00 Temperature 97.4 F L Pulse Rate 66 60 62 Respiratory Rate 16 Blood Pressure 102/58 L Pulse Oximetry 100 Oxygen Delivery 01/10/23 20:42 01/10/23 22:00 01/10/23 20:00 Temperature 97.7 F Pulse Rate 84 69 56 L Respiratory Rate 16 Blood Pressure 112/55 L Pulse Oximetry 99 Oxygen Delivery 01/11/23 00:00 01/11/23 04:00 01/11/23 06:00 Temperature 96.6 F L Pulse Rate 67 65 70 Respiratory Rate 16 Blood Pressure 130/70 Pulse Oximetry 98 Oxygen Delivery 01/11/23 08:11 Temperature 98.3 F Pulse Rate 69 Respiratory Rate 16 Blood Pressure 104/55 L Pulse Oximetry 98 Oxygen Delivery Room Air Intake/Output Intake/Output: Intake & Output 01/08/23 01/09/23 01/10/23 01/11/23 23:59 23:59 23:59 23:59 Intake Total 0008 3090 4250 1700 Output Total 3275 2000 2650 Balance -677 1090 1600 1700 Meds/Results Medications: Active Medications Generic N
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
[2023-01-11 10:56] LABS: Glucose Point of Care 149 mg/dl (65-105)
--- NOTE | 2023-01-11 11:51 | PC.NURSE ---
Returned from OR per [Cat]. Report received from [Cat].
[2023-01-11 11:59] LABS: Glucose Point of Care 144 mg/dl (65-105)
[2023-01-11] MEDS: metFORMIN HCL 500 MG TABLET 1000 MG PO (12:37)
[2023-01-11] MEDS: EMPAGLIFLOZIN 25 MG TABLET PO (12:38)
[2023-01-11] MEDS: lisinopriL 10 MG TABLET PO (12:38)
[2023-01-11] MEDS: ACETAMINOPHEN 325 MG TABLET 650 MG PO (14:12)
[2023-01-11] MEDS: OXACILLIN SODIUM 2 GM in SODIUM CHLORIDE 0.9% IV 100 ML IVPB ×2 (16:36→21:57)
[2023-01-11 17:12] LABS: Glucose Point of Care 162 mg/dl (65-105)
[2023-01-11 20:31] LABS: Glucose Point of Care 188 mg/dl (65-105)
--- NOTE | 2023-01-11 21:10 | PC.NURSE ---
This nurse has reviewed all charting completed by Jayla Stiles and agree with all entries for 01-10-23/01-11-23.
[2023-01-11] MEDS: DOXYCYCLINE HYCLATE 100 MG TABLET PO (21:54)
[2023-01-11] MEDS: METOPROLOL TARTRATE 12.5 MG TABLET PO (21:54)
[2023-01-12] VITALS (11 sets, daily range): BP systolic 95–119; BP diastolic 37–78; PULSE 59–75; RESP 16–20; TEMP 36–36.6; O2SAT 95–98
[2023-01-12] MEDS: OXACILLIN SODIUM 2 GM in SODIUM CHLORIDE 0.9% IV 100 ML IVPB ×4 (00:34→13:19)
[2023-01-12] MEDS: SODIUM CHLORIDE 0.9% IV 1,000 ML 100 ML IV CONT ×2 (00:34→13:19)
[2023-01-12] MEDS: metroNIDAZOLE 250 MG TABLET 500 MG PO (05:41)
[2023-01-12 07:41] LABS: Glucose Point of Care 152 mg/dl (65-105)
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
[2023-01-12 08:43] LABS: Basophils Absolute Auto 0.1 K/mm3 (0.0-0.1); Basophils Percent Auto 0.6 % (0.2-1.2); Eosinophils Absolute Auto 0.3 K/mm3 (0-0.3); Eosinophils Percent Auto 2.7 % (0-4.4); Hematocrit 28.5 % (42.0-52.0); Hemoglobin 7.8 g/dL (14.0-18.0); Immature Granulocyte Absolute 0.32 K/mm3 (0.00-0.031); Lymphocytes Absolute Auto 1.36 K/mm3 (0.9-3.2); Lymphocytes Percent Auto 12.8 % (18.3-44.2); Mean Corpuscular HGB Conc 27.4 g/dl (32-36); Mean Corpuscular Hemoglobin 24.2 pg (26-34); Mean Corpuscular Volume 88.5 fl (80-100); Mean Platelet Volume 8.8 fl (7.4-10.4); Monocytes Absolute Auto 0.6 K/mm3 (0.1-0.6); Monocytes Percent Auto 5.3 % (2.6-8.5); Neutrophils Percent Auto 75.6 % (45.5-73.1); Nucleated Red Blood Cells Perc 0.2 % (0.0-0.2); Platelet Count Result 240 k/mm3 (150-375); Red Blood Count 3.22 M/mm3 (4.6-6.20); Red Cell Distribution Width 15.9 % (11.5-14.5); White Blood Count 10.6 K/mm3 (4.5-10.0)
[2023-01-12 08:52] LABS: Anion Gap 2 mmol/L (8-16); Blood Urea Nitrogen 21 mg/dL (9-20); Calcium 7.8 mg/dL (8.4-10.2); Carbon Dioxide 26 mmol/L (22-30); Chloride 108 mmol/L (98-107); Estimated CRCL calculation 83 ml/min; Estimated Glomerular Filt Rate > 60; Glucose 140 mg/dL (65-110); Potassium 5.3 mmol/L (3.4-5.0); Sodium 136 mmol/L (137-145)
[2023-01-12] MEDS: lisinopriL 2.5 MG TABLET PO (09:19)
[2023-01-12] MEDS: ASPIRIN 325 MG ENTERIC TABLET PO (09:19)
[2023-01-12] MEDS: metFORMIN HCL 500 MG TABLET 1000 MG PO (09:19)
[2023-01-12] MEDS: METOPROLOL TARTRATE 12.5 MG TABLET PO ×2 (09:19→21:55)
[2023-01-12] MEDS: EMPAGLIFLOZIN 25 MG TABLET PO (09:21)
[2023-01-12] MEDS: ENOXAPARIN 40 MG/0.4 ML SYRINGE SUB-Q (09:21)
[2023-01-12] MEDS: DOXYCYCLINE HYCLATE 100 MG TABLET PO (09:21)
[2023-01-12] MEDS: GABAPENTIN 300 MG CAPSULE PO (09:21)
[2023-01-12 11:29] LABS: Glucose Point of Care 154 mg/dl (65-105)
--- NOTE | 2023-01-12 11:29 | PM.IMPN ---
Progress Note: A&P Assessment and Plan (1) Severe sepsis: Code(s): A41.9 - Sepsis, unspecified organism; R65.20 - Severe sepsis without septic shock Status: Acute (2) Diabetic foot infection: Code(s): E11.628 - Type 2 diabetes mellitus with other skin complications; L08.9 - Local infection of the skin and subcutaneous tissue, unspecified Status: Acute (3) Atrial fibrillation: Qualifiers: Atrial fibrillation type: unspecified Qualified Code(s): I48.91 - Unspecified atrial fibrillation Code(s): I48.91 - Unspecified atrial fibrillation Status: Acute (4) Cellulitis of right foot: Code(s): L03.115 - Cellulitis of right lower limb Status: Acute (5) Chronic anemia: Code(s): D64.9 - Anemia, unspecified Status: Acute (6) Acute renal failure: Code(s): N17.9 - Acute kidney failure, unspecified Status: Acute (7) Uncontrolled type 2 diabetes circulatory disorder erectile dysfunction: Status: Acute (8) Atrial fibrillation with RVR: Code(s): I48.91 - Unspecified atrial fibrillation Status: Acute (9) Lung nodule: Code(s): R91.1 - Solitary pulmonary nodule Status: Acute Plan Sepsis Improved Cultures noted Continue antibiotics Diabetic ulcer and cellulitis bilateral feet Debridement yesterday, dc once ok with surgery Continue wound care Continue antibiotics AFib RVR No history of AFib RVR Will need to follow up with Cardiology on discharge Uncontrolled type 2 diabetes Hold oral medication Start insulin sliding scale a.c. q.h.s. Acute renal failure Monitor Chronic anemia No obvious bleeding Follow-up CBC Lung nodule 8mm nodule in the superior segment of the left lower lobe. According to Fleischner Society criteria, for a low-risk patient, recommend follow-up CT scan at 6-12 months, then consider additional 18-[address]. For a high-risk patients, follow-up CT scans at both 6-12 months and 18-24 months are recommended. Recommend patient to follow-up with primary care doctor Patient may stay more than 2 midnights in the hospital and Subjective Date/time seen: 01/12/23 11:29 Interval history: No new complaints Exam Narrative: GENERAL: Pleasant, in no acute distress. Well-nourished. - EYES: EOMI. Anicteric. - HENT: Moist mucous membranes. - LUNGS: Clear to auscultation bilaterally, no wheezing, rhonchi, or rales. - CARDIOVASCULAR: Regular rhythm. No murmur. No JVD. - ABDOMEN: Soft, non-tender and non-distended. No palpable masses. - EXTREMITIES: No edema. Peripheral pulses 2+. Non-tender. - NEUROLOGIC: No focal neurological deficits. CN II-XII grossly intact. - PSYCHIATRIC: Awake, Alert and oriented x 3. Appropriate mood and affect. - SKIN: Nonhealing ulcer bilateral feet, some purulent discharge from right foot, swelling tender erythema bilateral feet - LYMPH: No cervical lymphadenopathy. Objective Data Vital Signs Vital Signs: Vital Signs - 24 hr 01/11/23 12:00 01/11/23 14:00 01/11/23 16:00 Temperature 97.7 F Pulse Rate 62 80 70 Respiratory Rate 20 Blood Pressure 102/44 L Pulse Oximetry 97 Oxygen Delivery 01/11/23 21:54 01/11/23 22:00 01/11/23 20:00 Temperature 98.3 F Pulse Rate 76 75 74 Respiratory Rate 16 Blood Pressure 106/56 L Pulse Oximetry 96 Oxygen Delivery 01/12/23 00:00 01/12/23 04:00 01/12/23 05:26 Temperature 96.8 F L Pulse Rate 60 75 64 Respiratory Rate 20 Blood Pressure 109/53 L Pulse Oximetry 95 Oxygen Delivery 01/12/23 09:19 01/12/23 09:15 Temperature Pulse Rate 63 Respiratory Rate Blood Pressure Pulse Oximetry Oxygen Delivery Room Air Intake/Output Intake/Output: Intake & Output 01/09/23 01/10/23 01/11/23 01/12/23 23:59 23:59 23:59 23:59 Intake Total 3090 4250 4490 830 Output Total 1999 2650 2300 1275 Balance 1090 1600 2190 -914 Meds/Results Medications:
--- NOTE | 2023-01-12 11:31 | PM.PNGS ---
Progress Note: A&P Assessment and Plan (1) Diabetic foot infection: Code(s): E11.628 - Type 2 diabetes mellitus with other skin complications; L08.9 - Local infection of the skin and subcutaneous tissue, unspecified Status: Acute Assessment and Plan: Patient's right foot abscess has been drained. He is to be draining well the redness and swelling is improved. However there is still some purulent fluid draining from the abscess cavity today. Some of the drainage is greenish and I am concerned he may have Pseudomonas infection any has Gram-negative bacilli on the Gram stain. We will consult with the Infectious Disease pharmacist to try to add better Gram-negative coverage will also cover Pseudomonas. Will also continue vancomycin IV for previous group B strep and Staph aureus positive cultures. We will also switch the oral Flagyl to IV. Continue daily dressing changes. Normal saline moist to dry gauze for now. Might need to switch back to Dakin's solution if Pseudomonas is found. Tentatively trying to plan to go to the operating room place a allograft to the bilateral plantar surface foot wound if the infections are adequately treated. Continue aggressive supportive management and IV antibiotics in the hospital due to the ongoing infection in the right foot. Subjective Subjective Date/Time Seen: 01/12/23 11:31 Interval history: Patient states he has less pain is right foot today. White blood cell count is decreased from 13,000 to 10,000 day. No fever. Post op day 1 after drainage of right foot abscess and placement [place] drains. He has previously cultured group B strep and Staph aureus and of the wound and is already on vancomycin IV and Flagyl p.o.. New Gram stain from I and D of right foot abscess yesterday shows many white blood cells with gram negative bacilli and Gram-positive cocci Exam Skin: Other: Right plantar surface foot wound clean but there is a small amount of greenish drainage. There is some additional purulent drainage of the drained abscess cavity but the redness around the area and swelling has markedly improved. Patient is still able to move all of his toes right foot. Left plantar surface foot wound clean without any swelling or redness. Objective Data Vital Signs Vital Signs: Vital Signs - 24 hr 01/11/23 12:00 01/11/23 14:00 01/11/23 16:00 Temperature 36.5 C Pulse Rate 62 80 70 Respiratory Rate 20 Blood Pressure 102/44 L Pulse Oximetry 97 Oxygen Delivery 01/11/23 21:54 01/11/23 22:00 01/11/23 20:00 Temperature 36.8 C Pulse Rate 76 75 74 Respiratory Rate 16 Blood Pressure 106/56 L Pulse Oximetry 96 Oxygen Delivery 01/12/23 00:00 01/12/23 04:00 01/12/23 05:26 Temperature 36.0 C L Pulse Rate 60 75 64 Respiratory Rate 20 Blood Pressure 109/53 L Pulse Oximetry 95 Oxygen Delivery 01/12/23 09:19 01/12/23 09:15 Temperature Pulse Rate 63 Respiratory Rate Blood Pressure Pulse Oximetry Oxygen Delivery Room Air Intake/Output Intake/Output: Intake & Output 01/09/23 01/10/23 01/11/23 01/12/23 23:59 23:59 23:59 23:59 Intake Total 3090 4250 4490 830 Output Total 1999 2650 2300 1275 Balance 1090 1600 2190 -445 Meds/Results Medications: Active Medications Generic Name Dose Route Start Last Admin Trade Name Freq PRN Reason Stop Dose Admin Acetaminophen 650 mg 01/06/23 17:21 01/11/23 14:12 Acetaminophen 325 Mg Tablet PO 650 mg Q6H PRN Administration Mild Pain (1-3) or Fever Hydrocodone Bitart/Acetaminophen 1 tab 01/11/23 10:48 Hydrocodone/Acetaminophen (*Crx) 5-325 Mg Tablet PO Q4H PRN Pain Rated 4-6 Aspirin 325 mg 01/07/23 09:00 01/12/23 09:19 Aspirin 325 Mg Enteric Tablet PO 325 mg QAM MAURICIO Administration Dextrose 12.5 gm 01/06/23 05:47 Dextrose 50% 25 Gm/50 Ml Syringe IV PUSH PRN PRN Hypoglycemia Protocol Doxycycline Hyclate 100
--- NOTE | 2023-01-12 12:34 | P.PNAN_ITS ---
Anes - Prog Note Post-Op Date/Time: 01/12/23 12:34 Cardiovascular status: normal Respiratory status: normal Airway patency: baseline Mental status: baseline Post-Op hydration status: normal Vital Signs: Last Vital Signs Temp 36.0 C L 01/12/23 05:26 Pulse 63 01/12/23 09:19 Resp 20 01/12/23 05:26 BP 109/53 L 01/12/23 05:26 Pulse Ox 95 01/12/23 05:26 O2 Del Method Room Air 01/12/23 09:15 O2 Flow Rate 8 01/11/23 11:00 Pain Score (VAS): Patient asleep, no nonverbal signs of pain present at this time. I/O: Intake & Output 01/11/23 01/12/23 01/12/23 23:59 07:59 15:59 Intake Total 1565 350 480 Output Total 1100 675 600 Balance 465 -325 -120 Laboratory Tests 01/12/23 08:35 01/12/23 08:35 01/11/23 01/11/23 01/12/23 16:58 19:49 07:25 WBC RBC Hgb Hct MCV MCH MCHC RDW Plt Count MPV Immature Gran % (Auto) Neut % (Auto) Lymph % (Auto) [place] % (Auto) Eos % (Auto) Baso % (Auto) Lymph # (Auto) [place] # (Auto) Eos # (Auto) Baso # (Auto) Abs Immat Gran (auto) Absolute Neuts (auto) Absolute Nucleated RBC Nucleated RBC % Sodium Potassium Chloride Carbon Dioxide Anion Gap BUN Creatinine Estim Creat Clear Calc Estimated GFR Glucose POC Capillary Glucose 162 H 188 H 152 H Calcium 01/12/23 01/12/23 08:35 11:21 WBC 10.6 H RBC 3.22 L Hgb 7.8 L Hct 28.5 L MCV 88.5 MCH 24.2 L MCHC 27.4 L RDW 15.9 H Plt Count 240 MPV 8.8 Immature Gran % (Auto) 3.0 H Neut % (Auto) 75.6 H Lymph % (Auto) 12.8 L [place] % (Auto) 5.3 Eos % (Auto) 2.7 Baso % (Auto) 0.6 Lymph # (Auto) 1.36 [place] # (Auto) 0.6 Eos # (Auto) 0.3 Baso # (Auto) 0.1 Abs Immat Gran (auto) 0.32 H Absolute Neuts (auto) 8.0 H Absolute Nucleated RBC 0.0 Nucleated RBC % 0.2 Sodium 136 L Potassium 5.3 H Chloride 108 H Carbon Dioxide 26 Anion Gap 2 L BUN 21 H Creatinine 1.10 Estim Creat Clear Calc 83 Estimated GFR > 60 Glucose 140 H POC Capillary Glucose 154 H Calcium 7.8 L Microbiology 01/11/23 10:00 Foot Right Anaerobic Culture - Preliminary 01/05/23 21:32 Blood Blood Culture - Final Staphylococcus aureus Post-procedural complaints: none Patient Feedback: Patient satisfied with anesthetic care.
[2023-01-12] MEDS: metroNIDAZOLE 500 MG/ISO 100ML 500 MG/100 ML BAG 100 MG IVPB ×2 (13:19→22:31)
--- NOTE | 2023-01-12 13:55 | PHA.ABX.ID ---
Pharmacy ID Consult - Stewardship Interventions Type of Interventions: Escalation Pharmacy ID Note: Subjective Pharmacy was consulted by Shailesh Roman regarding infectious diseases for Shantanu Mccullough. Shantanu Mccullough is a 62 year old M with concerns regarding foot wound. Background The patient is currently receiving oxacillin, doxycycline, and metronidazole. The patient's PMH includes foot wounds growing MRSA MSSA and GBS and MSSA Bloodstream infection among others. Per consulting provider patient growing GNR and GPC in recent foot culture with a concern for pseudomonas due to green discharge. Patient WBC seems to be responding to recent source control of right foot. Microbiology 01/11/23 10:00 Foot Right Anaerobic Culture - Preliminary 01/08/23 09:09 Blood Blood Culture - Preliminary 01/08/23 09:00 Blood Blood Culture - Preliminary 01/05/23 22:31 Blood Blood Culture - Final 01/05/23 22:07 Foot Right Wound Culture - Final Group B Streptococcus isolated Staphylococcus aureus 01/05/23 21:59 Foot Left Wound Culture - Final Group B Streptococcus isolated Staphylococcus aureus 01/05/23 21:32 Blood Blood Culture - Final Staphylococcus aureus Assessment/Recommendation/Discussion Spoke briefly with consulting provider and decision was made to escalate to cover pseudomonas which, to avoid double beta-lactam coverage, also involves converting oxacillin to vancomycin to allow for MRSA coverage as well for the one MRSA isolate on Left foot culture of 01/05. Patient now on cefepime 2g q8h, metronidazole 500 mg q8h and vancomycin pharmacy to dose with goals of 15-20 mcg/mL given BSI. Will continue to follow. Please reach out if more information is noted or clinical condition changes. Thank you for the interesting consult. Curt Lam, PharmD Infectious Disease/Antimicrobial Stewardship Pharmacist 01/12/23; 1355 WBC 10.6 K/mm3 (4.5-10.0) H 01/12/23 08:35 Creatinine 1.10 mg/dL (0.7-1.3) 01/12/23 08:35 Estim Creat Clear Calc 83 ml/min 01/12/23 08:35
[2023-01-12] MEDS: CEFEPIME 2 GM/NS 50 ML 2 GM/50 ML BAG IVPB ×2 (15:12→22:01)
[2023-01-12 16:41] LABS: Glucose Point of Care 187 mg/dl (65-105)
[2023-01-12 21:35] LABS: Glucose Point of Care 214 mg/dl (65-105)
[2023-01-12] MEDS: SOD HYPOCHLORITE 1/4 STRENGTH 473 ML 1 APPLIC TOPICAL (21:56)
[2023-01-12] MEDS: INSULIN ASPART (*BKC) 100 UNITS/ML SUB-Q (21:56)
[2023-01-13] VITALS (11 sets, daily range): BP systolic 92–115; BP diastolic 51–76; PULSE 63–80; RESP 16–22; TEMP 36–36.8; O2SAT 96–97
[2023-01-13] MEDS: SODIUM CHLORIDE 0.9% IV 1,000 ML 100 ML IV CONT ×2 (05:27→20:01)
[2023-01-13] MEDS: CEFEPIME 2 GM/NS 50 ML 2 GM/50 ML BAG IVPB ×3 (05:27→21:34)
[2023-01-13] MEDS: metroNIDAZOLE 500 MG/ISO 100ML 500 MG/100 ML BAG 100 MG IVPB ×3 (06:02→22:05)
[2023-01-13 06:53] LABS: Anion Gap 7 mmol/L (8-16); Blood Urea Nitrogen 20 mg/dL (9-20); Calcium 7.8 mg/dL (8.4-10.2); Carbon Dioxide 21 mmol/L (22-30); Chloride 110 mmol/L (98-107); Estimated CRCL calculation 83 ml/min; Estimated Glomerular Filt Rate > 60; Glucose 143 mg/dL (65-110); Potassium 5.1 mmol/L (3.4-5.0); Sodium 138 mmol/L (137-145)
[2023-01-13] MEDS: ENOXAPARIN 40 MG/0.4 ML SYRINGE SUB-Q (08:08)
[2023-01-13] MEDS: ASPIRIN 325 MG ENTERIC TABLET PO (08:08)
[2023-01-13] MEDS: metFORMIN HCL 500 MG TABLET 1000 MG PO (08:08)
[2023-01-13] MEDS: METOPROLOL TARTRATE 12.5 MG TABLET PO ×2 (08:08→21:35)
[2023-01-13] MEDS: GABAPENTIN 300 MG CAPSULE PO (08:09)
[2023-01-13] MEDS: EMPAGLIFLOZIN 25 MG TABLET PO (08:09)
[2023-01-13] MEDS: SOD HYPOCHLORITE 1/4 STRENGTH 473 ML 1 APPLIC TOPICAL ×2 (08:10→21:35)
[2023-01-13 08:19] LABS: Glucose Point of Care 137 mg/dl (65-105)
--- NOTE | 2023-01-13 10:31 | PM.IMPN ---
Progress Note: A&P Assessment and Plan (1) Severe sepsis: Code(s): A41.9 - Sepsis, unspecified organism; R65.20 - Severe sepsis without septic shock Status: Acute (2) Diabetic foot infection: Code(s): E11.628 - Type 2 diabetes mellitus with other skin complications; L08.9 - Local infection of the skin and subcutaneous tissue, unspecified Status: Acute (3) Atrial fibrillation: Qualifiers: Atrial fibrillation type: unspecified Qualified Code(s): I48.91 - Unspecified atrial fibrillation Code(s): I48.91 - Unspecified atrial fibrillation Status: Acute (4) Cellulitis of right foot: Code(s): L03.115 - Cellulitis of right lower limb Status: Acute (5) Chronic anemia: Code(s): D64.9 - Anemia, unspecified Status: Acute (6) Acute renal failure: Code(s): N17.9 - Acute kidney failure, unspecified Status: Acute (7) Uncontrolled type 2 diabetes circulatory disorder erectile dysfunction: Status: Acute (8) Atrial fibrillation with RVR: Code(s): I48.91 - Unspecified atrial fibrillation Status: Acute (9) Lung nodule: Code(s): R91.1 - Solitary pulmonary nodule Status: Acute Plan Sepsis Improved Cultures noted Continue antibiotics Diabetic ulcer and cellulitis bilateral feet Debridement yesterday, dc once ok with surgery Continue wound care Continue antibiotics AFib RVR No history of AFib RVR Will need to follow up with Cardiology on discharge Uncontrolled type 2 diabetes Hold oral medication Start insulin sliding scale a.c. q.h.s. Acute renal failure Monitor Chronic anemia No obvious bleeding Follow-up CBC Lung nodule 8mm nodule in the superior segment of the left lower lobe. According to Fleischner Society criteria, for a low-risk patient, recommend follow-up CT scan at 6-12 months, then consider additional 18-[address] For a high-risk patients, follow-up CT scans at both 6-12 months and 18-24 months are recommended. Recommend patient to follow-up with primary care doctor Patient may stay more than 2 midnights in the hospital and Subjective Date/time seen: 01/13/23 10:31 Interval history: no complaints Exam Narrative: GENERAL: Pleasant, in no acute distress. Well-nourished. - EYES: EOMI. Anicteric. - HENT: Moist mucous membranes. - LUNGS: Clear to auscultation bilaterally, no wheezing, rhonchi, or rales. - CARDIOVASCULAR: Regular rhythm. No murmur. No JVD. - ABDOMEN: Soft, non-tender and non-distended. No palpable masses. - EXTREMITIES: No edema. Peripheral pulses 2+. Non-tender. - NEUROLOGIC: No focal neurological deficits. CN II-XII grossly intact. - PSYCHIATRIC: Awake, Alert and oriented x 3. Appropriate mood and affect. - SKIN: Nonhealing ulcer bilateral feet, some purulent discharge from right foot, swelling tender erythema bilateral feet - LYMPH: No cervical lymphadenopathy. Objective Data Vital Signs Vital Signs: Vital Signs - 24 hr 01/12/23 14:38 01/12/23 14:00 01/12/23 21:55 Temperature 97.9 F Pulse Rate 69 74 Respiratory Rate 20 Blood Pressure 95/37 L Pulse Oximetry 98 Oxygen Delivery Room Air 01/12/23 22:00 01/12/23 12:00 01/12/23 16:00 Temperature 97.7 F Pulse Rate 73 67 59 L Respiratory Rate 16 Blood Pressure 119/78 Pulse Oximetry 96 Oxygen Delivery 01/12/23 20:00 01/13/23 00:00 01/13/23 05:51 Temperature 96.8 F L Pulse Rate 72 63 69 Respiratory Rate 16 Blood Pressure 115/76 Pulse Oximetry 96 Oxygen Delivery 01/13/23 04:00 01/13/23 08:08 01/13/23 08:00 Temperature Pulse Rate 78 73 Respiratory Rate Blood Pressure Pulse Oximetry Oxygen Delivery Room Air Intake/Output Intake/Output: Intake & Output 01/10/23 01/11/23 01/12/23 01/13/23 23:59 23:59 23:59 23:59 Intake Total 4250 4490 4790 290 Output Total 2650 2300 2200 Balance 1600 2190 2590 290 Meds/Result
[2023-01-13 11:37] LABS: Glucose Point of Care 202 mg/dl (65-105)
--- NOTE | 2023-01-13 12:23 | PM.PNGS ---
Progress Note: A&P Assessment and Plan (1) Diabetic foot infection: Code(s): E11.628 - Type 2 diabetes mellitus with other skin complications; L08.9 - Local infection of the skin and subcutaneous tissue, unspecified Status: Acute Assessment and Plan: Bilateral diabetic lower extremity foot wounds are improved today. Adding cefepime to cover gram-negative organism seems to improved the appearance of the wounds. Changing the dressing changes back to Dakin solution also helped. Continue below local wound care. Will look at the feet again tomorrow and see if we will continue to keep him on the schedule for debridement and application of allograft on Sunday. Subjective Subjective Date/Time Seen: 01/13/23 12:23 Interval history: Patient is clinically stable. Less pain in the right foot. IV antibiotics were adjusted yesterday to include Gram-negative coverage with the addition of cefepime. This was to cover possible Pseudomonas as the dressings had a green tinge to the dressed drainage. Culture speciation for the gram-negative lluvia is still pending. Patient continues on Flagyl and vancomycin as well. Today the drainage from the wound is more like a fibrous exudate and pus green. Dressings were changed to using Dakin solution b.i.d. yesterday. No fever. Exam Skin: Other: Bilateral foot wounds with less drainage. Minimal greenish drainage on the dressings today. Minimal drainage out of the abscess draining sinus tract today. Decreased swelling in the right lateral foot. Objective Data Vital Signs Vital Signs: Vital Signs - 24 hr 01/12/23 14:38 01/12/23 14:00 01/12/23 21:55 Temperature 36.6 C Pulse Rate 69 74 Respiratory Rate 20 Blood Pressure 95/37 L Pulse Oximetry 98 Oxygen Delivery Room Air 01/12/23 22:00 01/12/23 16:00 01/12/23 20:00 Temperature 36.5 C Pulse Rate 73 59 L 72 Respiratory Rate 16 Blood Pressure 119/78 Pulse Oximetry 96 Oxygen Delivery 01/13/23 00:00 01/13/23 05:51 01/13/23 04:00 Temperature 36.0 C L Pulse Rate 63 69 78 Respiratory Rate 16 Blood Pressure 115/76 Pulse Oximetry 96 Oxygen Delivery 01/13/23 08:08 01/13/23 08:00 Temperature Pulse Rate 73 Respiratory Rate Blood Pressure Pulse Oximetry Oxygen Delivery Room Air Intake/Output Intake/Output: Intake & Output 01/10/23 01/11/23 01/12/23 01/13/23 23:59 23:59 23:59 23:59 Intake Total 4250 4490 4790 290 Output Total 2650 2300 2200 Balance 1600 2190 2590 290 Meds/Results Medications: Active Medications Generic Name Dose Route Start Last Admin Trade Name Freq PRN Reason Stop Dose Admin Acetaminophen 650 mg 01/06/23 17:21 01/11/23 14:12 Acetaminophen 325 Mg Tablet PO 650 mg Q6H PRN Administration Mild Pain (1-3) or Fever Hydrocodone Bitart/Acetaminophen 1 tab 01/11/23 10:48 Hydrocodone/Acetaminophen (*Crx) 5-325 Mg Tablet PO Q4H PRN Pain Rated 4-6 Aspirin 325 mg 01/07/23 09:00 01/13/23 08:08 Aspirin 325 Mg Enteric Tablet PO 325 mg QAM MAURICIO Administration Dextrose 12.5 gm 01/06/23 05:47 Dextrose 50% 25 Gm/50 Ml Syringe IV PUSH PRN PRN Hypoglycemia Protocol Empagliflozin 25 mg 01/11/23 12:00 01/13/23 08:09 Empagliflozin 25 Mg Tablet PO 25 mg DAILY MAURICIO Administration Enoxaparin Sodium 40 mg 01/07/23 09:00 01/13/23 08:08 Enoxaparin 40 Mg/0.4 Ml Syringe SUB-Q 40 mg DAILY MAURICIO Administration Gabapentin 300 mg 01/07/23 09:00 01/13/23 08:09 Gabapentin 300 Mg Capsule PO 300 mg DAILY MAURICIO Administration Glucagon 1 mg 01/06/23 05:47 Glucagon For Inj 1 Mg Vial IM PRN PRN Hypoglycemia Protocol Glucose 15 gm 01/06/23 05:47 Glucose Oral Gel 15 Gm Of Glucse In 37.5 Gm Tube PO PRN PRN Hypoglycemia Protocol Hydromorphone HCl 0.5 mg 01/06/23 09:44 Hydromorphone Hcl Inj (*Crx) 1 Mg/Ml Syr IV PUSH Q4H PRN
[2023-01-13] MEDS: INSULIN ASPART (*BKC) 100 UNITS/ML SUB-Q (12:58)
[2023-01-13] MEDS: guaiFENesin 12 HR 600 MG TABCR PO (17:05)
[2023-01-13 17:12] LABS: Glucose Point of Care 131 mg/dl (65-105)
[2023-01-13 22:10] LABS: Glucose Point of Care 191 mg/dl (65-105)
[2023-01-14] VITALS (11 sets, daily range): BP systolic 109–124; BP diastolic 55–79; PULSE 60–72; RESP 18–22; TEMP 36.1–36.6; O2SAT 97–99
[2023-01-14 05:55] LABS: Basophils Absolute Auto 0.1 K/mm3 (0.0-0.1); Basophils Percent Auto 0.7 % (0.2-1.2); Eosinophils Absolute Auto 0.4 K/mm3 (0-0.3); Eosinophils Percent Auto 2.9 % (0-4.4); Hematocrit 28.4 % (42.0-52.0); Hemoglobin 8.1 g/dL (14.0-18.0); Immature Granulocyte Absolute 0.28 K/mm3 (0.00-0.031); Immature Granulocyte Percent A 2.2 % (0-0.5); Lymphocytes Absolute Auto 2.12 K/mm3 (0.9-3.2); Lymphocytes Percent Auto 16.3 % (18.3-44.2); Mean Corpuscular HGB Conc 28.5 g/dl (32-36); Mean Corpuscular Hemoglobin 25.1 pg (26-34); Mean Corpuscular Volume 87.9 fl (80-100); Monocytes Absolute Auto 0.7 K/mm3 (0.1-0.6); Monocytes Percent Auto 5.1 % (2.6-8.5); Neutrophils Absolute Auto 9.5 K/mm3 (1.3-6.7); Neutrophils Percent Auto 72.8 % (45.5-73.1); Platelet Count Result 277 k/mm3 (150-375); Red Blood Count 3.23 M/mm3 (4.6-6.20); Red Cell Distribution Width 16.3 % (11.5-14.5)
[2023-01-14 06:10] LABS: Anion Gap 9 mmol/L (8-16); Blood Urea Nitrogen 21 mg/dL (9-20); Calcium 8.1 mg/dL (8.4-10.2); Carbon Dioxide 20 mmol/L (22-30); Chloride 106 mmol/L (98-107); Estimated CRCL calculation 83 ml/min; Estimated Glomerular Filt Rate > 60; Glucose 151 mg/dL (65-110); Potassium 5.1 mmol/L (3.4-5.0); Sodium 135 mmol/L (137-145)
[2023-01-14] MEDS: CEFEPIME 2 GM/NS 50 ML 2 GM/50 ML BAG IVPB ×3 (06:21→22:10)
[2023-01-14 06:24] LABS: Anisocytosis 1+ (NORMAL); Hypochromasia 1+ (NORMAL); Platelet Estimate Adequate (Adequate); Schistocytes None Seen (NORMAL)
[2023-01-14] MEDS: metroNIDAZOLE 500 MG/ISO 100ML 500 MG/100 ML BAG 100 MG IVPB ×3 (06:54→21:03)
[2023-01-14 08:16] LABS: Glucose Point of Care 140 mg/dl (65-105)
[2023-01-14] MEDS: metFORMIN HCL 500 MG TABLET 1000 MG PO (08:56)
[2023-01-14] MEDS: ASPIRIN 325 MG ENTERIC TABLET PO (08:57)
[2023-01-14] MEDS: EMPAGLIFLOZIN 25 MG TABLET PO (08:57)
[2023-01-14] MEDS: METOPROLOL TARTRATE 12.5 MG TABLET PO ×2 (08:57→20:22)
[2023-01-14] MEDS: guaiFENesin 12 HR 600 MG TABCR PO (08:57)
[2023-01-14] MEDS: GABAPENTIN 300 MG CAPSULE PO (08:57)
[2023-01-14] MEDS: SOD HYPOCHLORITE 1/4 STRENGTH 473 ML 1 APPLIC TOPICAL ×2 (08:57→20:23)
[2023-01-14] MEDS: ENOXAPARIN 40 MG/0.4 ML SYRINGE SUB-Q (09:06)
--- NOTE | 2023-01-14 10:28 | PM.IMPN ---
Progress Note: A&P Assessment and Plan (1) Severe sepsis: Code(s): A41.9 - Sepsis, unspecified organism; R65.20 - Severe sepsis without septic shock Status: Acute (2) Diabetic foot infection: Code(s): E11.628 - Type 2 diabetes mellitus with other skin complications; L08.9 - Local infection of the skin and subcutaneous tissue, unspecified Status: Acute (3) Atrial fibrillation: Qualifiers: Atrial fibrillation type: unspecified Qualified Code(s): I48.91 - Unspecified atrial fibrillation Code(s): I48.91 - Unspecified atrial fibrillation Status: Acute (4) Cellulitis of right foot: Code(s): L03.115 - Cellulitis of right lower limb Status: Acute (5) Chronic anemia: Code(s): D64.9 - Anemia, unspecified Status: Acute (6) Acute renal failure: Code(s): N17.9 - Acute kidney failure, unspecified Status: Acute (7) Uncontrolled type 2 diabetes circulatory disorder erectile dysfunction: Status: Acute (8) Atrial fibrillation with RVR: Code(s): I48.91 - Unspecified atrial fibrillation Status: Acute (9) Lung nodule: Code(s): R91.1 - Solitary pulmonary nodule Status: Acute Plan Sepsis Improved Cultures noted Continue antibiotics Diabetic ulcer and cellulitis bilateral feet Debridement yesterday, dc once ok with surgery Continue wound care Continue antibiotics AFib RVR No history of AFib RVR Will need to follow up with Cardiology on discharge Uncontrolled type 2 diabetes Hold oral medication Start insulin sliding scale a.c. q.h.s. Acute renal failure Monitor Chronic anemia No obvious bleeding Follow-up CBC Lung nodule 8mm nodule in the superior segment of the left lower lobe. According to Fleischner Society criteria, for a low-risk patient, recommend follow-up CT scan at 6-12 months, then consider additional 18-[address] For a high-risk patients, follow-up CT scans at both 6-12 months and 18-24 months are recommended. Recommend patient to follow-up with primary care doctor Patient may stay more than 2 midnights in the hospital and Subjective Date/time seen: 01/14/23 10:28 Interval history: No new complaints Exam Narrative: GENERAL: Pleasant, in no acute distress. Well-nourished. - EYES: EOMI. Anicteric. - HENT: Moist mucous membranes. - LUNGS: Clear to auscultation bilaterally, no wheezing, rhonchi, or rales. - CARDIOVASCULAR: Regular rhythm. No murmur. No JVD. - ABDOMEN: Soft, non-tender and non-distended. No palpable masses. - EXTREMITIES: No edema. Peripheral pulses 2+. Non-tender. - NEUROLOGIC: No focal neurological deficits. CN II-XII grossly intact. - PSYCHIATRIC: Awake, Alert and oriented x 3. Appropriate mood and affect. - SKIN: Nonhealing ulcer bilateral feet, some purulent discharge from right foot, swelling tender erythema bilateral feet - LYMPH: No cervical lymphadenopathy. Objective Data Vital Signs Vital Signs: Vital Signs - 24 hr 01/13/23 14:00 01/13/23 12:00 01/13/23 16:00 Temperature 98.2 F Pulse Rate 66 64 72 Respiratory Rate 18 Blood Pressure 92/51 L Pulse Oximetry 97 01/13/23 21:35 01/13/23 20:00 01/13/23 22:00 Temperature 97 F L Pulse Rate 74 78 80 Respiratory Rate 22 H Blood Pressure 102/52 L Pulse Oximetry 97 01/14/23 00:00 01/14/23 04:00 01/14/23 06:00 Temperature 98 F Pulse Rate 64 65 61 Respiratory Rate 22 H Blood Pressure 124/79 Pulse Oximetry 99 01/14/23 08:57 Temperature Pulse Rate 66 Respiratory Rate Blood Pressure Pulse Oximetry Intake/Output Intake/Output: Intake & Output 01/11/23 01/12/23 01/13/23 01/14/23 23:59 23:59 23:59 23:59 Intake Total 4490 4790 2560 990 Output Total 2300 2200 1150 1350 Balance 2190 2590 1410 -360 Meds/Results Medications: Active Medications Generic Name Dose Route Start Last Admin Trade Name Freq PRN Reason Stop Dose Admin
[2023-01-14 12:06] LABS: Glucose Point of Care 164 mg/dl (65-105)
--- NOTE | 2023-01-14 13:02 | PM.PNGS ---
Progress Note: A&P Assessment and Plan (1) Diabetic foot infection: Code(s): E11.628 - Type 2 diabetes mellitus with other skin complications; L08.9 - Local infection of the skin and subcutaneous tissue, unspecified Status: Acute Assessment and Plan: Continue current IV antibiotic regimen and Dakin solution dressing changes b.i.d.. Wounds look better today and will proceed with debridement of the bilateral foot wounds and application of allograft tomorrow. Subjective Subjective Date/Time Seen: 01/14/23 13:02 Interval history: Patient continues do well. No complaints. He does continue to walk to the bathroom as per the nursing report. He has been instructed multiple times to just use the bedside commode and only put weight on his heel [place] [address] [place]. No fever. He continues on multiple IV antibiotics to cover multi organism infection in the bilateral feet. Exam Skin: Other: The bilateral plantar surface of foot ulcers are clean. No greenish drainage today. Drainage from the right lateral foot abscess cavity has markedly decreased as well. Normal erythema of the right lateral foot. Still has good granulation tissue the base of the wounds. Objective Data Vital Signs Vital Signs: Vital Signs - 24 hr 01/13/23 14:00 01/13/23 16:00 01/13/23 21:35 Temperature 36.8 C Pulse Rate 66 72 74 Respiratory Rate 18 Blood Pressure 92/51 L Pulse Oximetry 97 Oxygen Delivery 01/13/23 20:00 01/13/23 22:00 01/14/23 00:00 Temperature 36.1 C L Pulse Rate 78 80 64 Respiratory Rate 22 H Blood Pressure 102/52 L Pulse Oximetry 97 Oxygen Delivery 01/14/23 04:00 01/14/23 06:00 01/14/23 08:57 Temperature 36.6 C Pulse Rate 65 61 66 Respiratory Rate 22 H Blood Pressure 124/79 Pulse Oximetry 99 Oxygen Delivery 01/14/23 09:00 Temperature Pulse Rate Respiratory Rate Blood Pressure Pulse Oximetry Oxygen Delivery Room Air Intake/Output Intake/Output: Intake & Output 01/11/23 01/12/23 01/13/23 01/14/23 23:59 23:59 23:59 23:59 Intake Total 4490 4790 2560 990 Output Total 2300 2200 1150 1350 Balance 2190 2590 1410 -360 Meds/Results Medications: Active Medications Generic Name Dose Route Start Last Admin Trade Name Freq PRN Reason Stop Dose Admin Acetaminophen 650 mg 01/06/23 17:21 01/11/23 14:12 Acetaminophen 325 Mg Tablet PO 650 mg Q6H PRN Administration Mild Pain (1-3) or Fever Hydrocodone Bitart/Acetaminophen 1 tab 01/11/23 10:48 Hydrocodone/Acetaminophen (*Crx) 5-325 Mg Tablet PO Q4H PRN Pain Rated 4-6 Aspirin 325 mg 01/07/23 09:00 01/14/23 08:57 Aspirin 325 Mg Enteric Tablet PO 325 mg QAM MAURICIO Administration Dextrose 12.5 gm 01/06/23 05:47 Dextrose 50% 25 Gm/50 Ml Syringe IV PUSH PRN PRN Hypoglycemia Protocol Empagliflozin 25 mg 01/11/23 12:00 01/14/23 08:57 Empagliflozin 25 Mg Tablet PO 25 mg DAILY MAURICIO Administration Enoxaparin Sodium 40 mg 01/07/23 09:00 01/14/23 09:06 Enoxaparin 40 Mg/0.4 Ml Syringe SUB-Q 40 mg DAILY MAURICIO Administration Gabapentin 300 mg 01/07/23 09:00 01/14/23 08:57 Gabapentin 300 Mg Capsule PO 300 mg DAILY MAURICIO Administration Glucagon 1 mg 01/06/23 05:47 Glucagon For Inj 1 Mg Vial IM PRN PRN Hypoglycemia Protocol Glucose 15 gm 01/06/23 05:47 Glucose Oral Gel 15 Gm Of Glucse In 37.5 Gm Tube PO PRN PRN Hypoglycemia Protocol Guaifenesin 600 mg 01/13/23 16:34 01/14/23 08:57 Guaifenesin 12 Hr 600 Mg Tabcr PO 600 mg Q12HR PRN Administration Congestion Hydromorphone HCl 0.5 mg 01/06/23 09:44 Hydromorphone Hcl Inj (*Crx) 1 Mg/Ml Syr IV PUSH Q4H PRN Chest Pain Dextrose 1,000 mls @ 100 mls/hr 01/06/23 05:47 Dextrose 5% 1,000 Ml IVPB PRN PRN Hypoglycemia Protocol Sodium Chloride 1,000 mls @ 1
[2023-01-14] MEDS: SODIUM CHLORIDE 0.9% IV 1,000 ML 100 ML IV CONT (14:09)
[2023-01-14 16:54] LABS: Glucose Point of Care 151 mg/dl (65-105)
[2023-01-14 20:41] LABS: Vancomycin Trough 20.6 ug/mL (10.0-20.0)
[2023-01-14 20:57] LABS: Glucose Point of Care 157 mg/dl (65-105)
[2023-01-15] VITALS (18 sets, daily range): BP systolic 100–134; BP diastolic 58–78; PULSE 58–78; RESP 14–20; TEMP 35.5–36.4; O2SAT 92–100
[2023-01-15] MEDS: SODIUM CHLORIDE 0.45% 1,000 ML 75 ML IV CONT ×2 (00:42→18:12)
[2023-01-15] MEDS: CEFEPIME 2 GM/NS 50 ML 2 GM/50 ML BAG IVPB ×3 (05:23→21:17)
[2023-01-15] MEDS: metroNIDAZOLE 500 MG/ISO 100ML 500 MG/100 ML BAG 100 MG IVPB ×3 (05:53→23:49)
[2023-01-15 06:57] LABS: Basophils Absolute Auto 0.1 K/mm3 (0.0-0.1); Basophils Percent Auto 0.5 % (0.2-1.2); Eosinophils Absolute Auto 0.4 K/mm3 (0-0.3); Eosinophils Percent Auto 3.1 % (0-4.4); Hematocrit 30.1 % (42.0-52.0); Hemoglobin 8.4 g/dL (14.0-18.0); Immature Granulocyte Absolute 0.19 K/mm3 (0.00-0.031); Immature Granulocyte Percent A 1.7 % (0-0.5); Lymphocytes Absolute Auto 1.55 K/mm3 (0.9-3.2); Lymphocytes Percent Auto 13.7 % (18.3-44.2); Mean Corpuscular HGB Conc 27.9 g/dl (32-36); Mean Corpuscular Hemoglobin 25.1 pg (26-34); Mean Corpuscular Volume 89.9 fl (80-100); Mean Platelet Volume 8.8 fl (7.4-10.4); Monocytes Absolute Auto 0.7 K/mm3 (0.1-0.6); Neutrophils Absolute Auto 8.5 K/mm3 (1.3-6.7); Nucleated Red Blood Cells Perc 0.4 % (0.0-0.2); Platelet Count Result 243 k/mm3 (150-375); Red Blood Count 3.35 M/mm3 (4.6-6.20); Red Cell Distribution Width 16.9 % (11.5-14.5); White Blood Count 11.4 K/mm3 (4.5-10.0)
[2023-01-15 07:07] LABS: Anion Gap 6 mmol/L (8-16); Blood Urea Nitrogen 20 mg/dL (9-20); Carbon Dioxide 21 mmol/L (22-30); Chloride 107 mmol/L (98-107); Estimated CRCL calculation 91 ml/min; Estimated Glomerular Filt Rate > 60; Glucose 143 mg/dL (65-110); Potassium 5.2 mmol/L (3.4-5.0); Sodium 134 mmol/L (137-145)
[2023-01-15 07:23] LABS: Anisocytosis 1+ (NORMAL); Platelet Estimate Adequate (Adequate)
[2023-01-15 07:24] LABS: Burr Cells 1+ (NORMAL); Schistocytes None Seen (NORMAL); Tear Drop Cells 1+ (NORMAL)
[2023-01-15 07:48] LABS: Glucose Point of Care 127 mg/dl (65-105)
[2023-01-15] MEDS: GABAPENTIN 300 MG CAPSULE PO (08:57)
[2023-01-15] MEDS: METOPROLOL TARTRATE 12.5 MG TABLET PO ×2 (08:57→21:16)
--- NOTE | 2023-01-15 10:47 | PM.IMPN ---
Progress Note: A&P Assessment and Plan (1) Severe sepsis: Code(s): A41.9 - Sepsis, unspecified organism; R65.20 - Severe sepsis without septic shock Status: Acute (2) Diabetic foot infection: Code(s): E11.628 - Type 2 diabetes mellitus with other skin complications; L08.9 - Local infection of the skin and subcutaneous tissue, unspecified Status: Acute (3) Atrial fibrillation: Qualifiers: Atrial fibrillation type: unspecified Qualified Code(s): I48.91 - Unspecified atrial fibrillation Code(s): I48.91 - Unspecified atrial fibrillation Status: Acute (4) Cellulitis of right foot: Code(s): L03.115 - Cellulitis of right lower limb Status: Acute (5) Chronic anemia: Code(s): D64.9 - Anemia, unspecified Status: Acute (6) Acute renal failure: Code(s): N17.9 - Acute kidney failure, unspecified Status: Acute (7) Uncontrolled type 2 diabetes circulatory disorder erectile dysfunction: Status: Acute (8) Atrial fibrillation with RVR: Code(s): I48.91 - Unspecified atrial fibrillation Status: Acute (9) Lung nodule: Code(s): R91.1 - Solitary pulmonary nodule Status: Acute Plan Sepsis Improved Cultures noted Continue antibiotics Diabetic ulcer and cellulitis bilateral feet Debridement yesterday, dc once ok with surgery Continue wound care Continue antibiotics AFib RVR No history of AFib RVR Will need to follow up with Cardiology on discharge Uncontrolled type 2 diabetes Hold oral medication Start insulin sliding scale a.c. q.h.s. Acute renal failure Monitor Chronic anemia No obvious bleeding Follow-up CBC Lung nodule 8mm nodule in the superior segment of the left lower lobe. According to Fleischner Society criteria, for a low-risk patient, recommend follow-up CT scan at 6-12 months, then consider additional 18-[address] For a high-risk patients, follow-up CT scans at both 6-12 months and 18-24 months are recommended. Recommend patient to follow-up with primary care doctor Patient may stay more than 2 midnights in the hospital and Subjective Date/time seen: 01/15/23 10:47 Interval history: no complaints Exam Narrative: GENERAL: Pleasant, in no acute distress. Well-nourished. - EYES: EOMI. Anicteric. - HENT: Moist mucous membranes. - LUNGS: Clear to auscultation bilaterally, no wheezing, rhonchi, or rales. - CARDIOVASCULAR: Regular rhythm. No murmur. No JVD. - ABDOMEN: Soft, non-tender and non-distended. No palpable masses. - EXTREMITIES: No edema. Peripheral pulses 2+. Non-tender. - NEUROLOGIC: No focal neurological deficits. CN II-XII grossly intact. - PSYCHIATRIC: Awake, Alert and oriented x 3. Appropriate mood and affect. - SKIN: Nonhealing ulcer bilateral feet, some purulent discharge from right foot, swelling tender erythema bilateral feet - LYMPH: No cervical lymphadenopathy. Objective Data Vital Signs Vital Signs: Vital Signs - 24 hr 01/14/23 14:00 01/14/23 12:00 01/14/23 16:00 Temperature 97.9 F Pulse Rate 68 65 60 Respiratory Rate 18 Blood Pressure 109/55 L Pulse Oximetry 99 Oxygen Delivery 01/14/23 20:22 01/14/23 20:25 01/14/23 20:00 Temperature 97 F L Pulse Rate 66 61 Respiratory Rate 18 Blood Pressure 112/58 L Pulse Oximetry 97 97 Oxygen Delivery Room Air 01/14/23 20:00 01/15/23 00:00 01/15/23 04:22 Temperature 97.1 F L Pulse Rate 72 62 61 Respiratory Rate 18 Blood Pressure 125/78 Pulse Oximetry 100 Oxygen Delivery 01/15/23 04:00 01/15/23 08:57 Temperature Pulse Rate 58 L 60 Respiratory Rate Blood Pressure Pulse Oximetry Oxygen Delivery Intake/Output Intake/Output: Intake & Output 01/12/23 01/13/23 01/14/23 01/15/23 23:59 23:59 23:59 23:59 Intake Total 4790 2560 3300 1400 Output Total 2200 1150 2475 200 Balance 2590 1682 976 0430 Meds/Results Medications: Ac
[2023-01-15 11:43] LABS: Glucose Point of Care 121 mg/dl (65-105)
[2023-01-15 12:50] LABS: Glucose Point of Care 117 mg/dl (65-105)
--- NOTE | 2023-01-15 13:56 | WPDANESEPPF ---
Anes - Initial Pre Proc Eval Procedure: Operation Date: 01/11/23 09:30 Proposed Procedures p Debridement Bilateral Foot Wounds - Regan Roman MD Operation Date: 01/15/23 14:30 Proposed Procedures p Debridement Bilateral Foot Wounds And Placement Allograft - Regan Roman MD Date/Time: 01/15/23 13:56 Surgeon: Rosana Fuentes DO Pre Op Diagnosis: Sepsis Patient Data Age: 62 Gender: M Height: 1.83 m Weight: 126.4 kg Last Vital Signs Temp 36.2 C L 01/15/23 04:22 Pulse 60 01/15/23 08:57 Resp 18 01/15/23 04:22 BP 125/78 01/15/23 04:22 Pulse Ox 100 01/15/23 04:22 O2 Del Method Room Air 01/14/23 20:00 O2 Flow Rate 8 01/11/23 11:00 Allergies Allergy/AdvReac Type Severity Reaction Status Date / Time No Known Allergies Allergy Verified 01/15/23 12:35 Home Medications Medication Instructions Recorded Confirmed Type dulaglutide 1.5 mg/0.5 mL 1.5 mg subcut WEEKLY 01/06/23 01/06/23 History subcutaneous pen injector (Trulicity) empagliflozin 25 mg tablet 25 mg PO DAILY 01/06/23 01/06/23 History (Jardiance) gabapentin 300 mg capsule 300 mg PO DAILY 01/06/23 01/06/23 History lisinopril 10 mg tablet 10 mg PO DAILY 01/06/23 01/06/23 History metformin 1,000 mg tablet 1,000 mg PO DAILY 01/06/23 01/06/23 History sitagliptin phosphate 100 mg 100 mg PO DAILY 01/06/23 01/06/23 History tablet (Januvia) Laboratory Tests 01/14/23 01/14/23 01/14/23 16:42 19:52 20:23 WBC RBC Hgb Hct MCV MCH MCHC RDW Plt Count MPV Immature Gran % (Auto) Neut % (Auto) Lymph % (Auto) Hitchcock % (Auto) Eos % (Auto) Baso % (Auto) Lymph # (Auto) Hitchcock # (Auto) Eos # (Auto) Baso # (Auto) Abs Immat Gran (auto) Absolute Neuts (auto) Absolute Nucleated RBC Nucleated RBC % Platelet Estimate Anisocytosis Tear Drop Cells Celina Cells Schistocytes Sodium Potassium Chloride Carbon Dioxide Anion Gap BUN Creatinine Estim Creat Clear Calc Estimated GFR Glucose POC Capillary Glucose 151 H mg/dl 157 H mg/dl (65-105) (65-105) Calcium Vancomycin Trough 20.6 H ug/mL (10.0-20.0) 01/15/23 01/15/23 01/15/23 06:31 07:43 11:13 WBC 11.4 H K/mm3 (4.5-10.0) RBC 3.35 L M/mm3 (4.6-6.20) Hgb 8.4 L g/dL (14.0-18.0) Hct 30.1 L % (42.0-52.0) MCV 89.9 fl (80-100) MCH 25.1 L pg (26-34) MCHC 27.9 L g/dl (32-36) RDW 16.9 H % (11.5-14.5) Plt Count 243 k/mm3 (150-375) MPV 8.8 fl (7.4-10.4) Immature Gran % (Auto) 1.7 H % (0-0.5) Neut % (Auto) 75.0 H % (45.5-73.1) Lymph % (Auto) 13.7 L % (18.3-44.2) Hitchcock % (Auto) 6.0 % (2.6-8.5) Eos % (Auto) 3.1 % (0-4.4) Baso % (Auto) 0.5 % (0.2-1.2) Lymph # (Auto) 1.55 K/mm3 (0.9-3.2) Hitchcock # (Auto) 0.7 H K/mm3 (0.1-0.6) Eos # (Auto) 0.4 H K/mm3 (0-0.3) Baso # (Auto) 0.1 K/mm3 (0.0-0.1) Abs Immat Gran (auto) 0.19 H K/mm3 (0.00-0.031) Absolute Neuts (auto) 8.5 H K/mm3 (1.3-6.7) Absolute Nucleated RBC 0.0 K/mm3 (0.0-0.012) Nucleated RBC % 0.4 H % (0.0-0.2) Platelet Estimate Adequate (Adequate) Anisocytosis 1+ (NORMAL) Tear Drop Cells 1+ (NORMAL) Berkley Cells 1+ (NORMAL) Schistocytes None seen (NORMAL) Sodium 134 L mmol/L (137-145)
[2023-01-15] MEDS: LACTATED RINGERS 1,000 ML 30 ML IV CONT (14:00)
--- NOTE | 2023-01-15 14:57 | WPDHPUPDATE1 ---
History and Physical Update Update Date/Time: 01/15/23 14:57 History and Physical has been reviewed, including an updated exam of the patient. There are NO changes in the patient's condition. Risks, benefits, and alternatives have been discussed and questions answered. Patient agrees to proceed with procedure.
[2023-01-15 16:33] LABS: Glucose Point of Care 120 mg/dl (65-105)
--- NOTE | 2023-01-15 16:34 | P.OPB_ITS ---
Procedure Note - Brief Procedure Note - Brief Date of procedure: 01/15/23 Bilateral diabetic foot wounds Post-op diagnosis: Same Procedure performed: Sharp excisional scalpel debridement of skin and SQ tissue bilateral plantar surface forefoot wounds with application of bilateral Amniocord allograft (32 sq cm each foot=64 sq cm total). Surgeon: Regan Roman MD Local Bulk Driver: JANELLE Blackburn Anesthesia: GLMA Implants: 5 x 4 cm Amniocord allograft (2) each foot. Estimated blood loss (mL): 5 Urine output (mL): 200 Drains: No Packing: No Pathology: None sent Complications: No immediate complications Condition: Stable Disposition: PACU
[2023-01-15] MEDS: metFORMIN HCL 500 MG TABLET 1000 MG PO (17:51)
[2023-01-15] MEDS: EMPAGLIFLOZIN 25 MG TABLET PO (17:51)
[2023-01-15] MEDS: ASPIRIN 325 MG ENTERIC TABLET PO (17:51)
[2023-01-16] VITALS (11 sets, daily range): BP systolic 101–123; BP diastolic 57–71; PULSE 56–93; RESP 18–20; TEMP 35.6–36.5; O2SAT 96–98
[2023-01-16] MEDS: SODIUM CHLORIDE 0.45% 1,000 ML 75 ML IV CONT ×2 (02:37→21:05)
[2023-01-16 03:26] LABS: Glucose Point of Care 132 mg/dl (65-105)
[2023-01-16 03:26] LABS: Glucose Point of Care 200 mg/dl (65-105)
[2023-01-16] MEDS: CEFEPIME 2 GM/NS 50 ML 2 GM/50 ML BAG IVPB ×3 (05:26→21:06)
[2023-01-16] MEDS: metroNIDAZOLE 500 MG/ISO 100ML 500 MG/100 ML BAG 100 MG IVPB ×3 (06:23→21:09)
[2023-01-16 07:05] LABS: Basophils Absolute Auto 0.1 K/mm3 (0.0-0.1); Basophils Percent Auto 0.8 % (0.2-1.2); Eosinophils Absolute Auto 0.3 K/mm3 (0-0.3); Eosinophils Percent Auto 2.7 % (0-4.4); Hematocrit 30.7 % (42.0-52.0); Hemoglobin 8.3 g/dL (14.0-18.0); Immature Granulocyte Absolute 0.16 K/mm3 (0.00-0.031); Immature Granulocyte Percent A 1.4 % (0-0.5); Lymphocytes Percent Auto 13.3 % (18.3-44.2); Mean Corpuscular Hemoglobin 24.5 pg (26-34); Mean Corpuscular Volume 90.6 fl (80-100); Mean Platelet Volume 9.1 fl (7.4-10.4); Monocytes Absolute Auto 0.7 K/mm3 (0.1-0.6); Monocytes Percent Auto 6.5 % (2.6-8.5); Neutrophils Absolute Auto 8.5 K/mm3 (1.3-6.7); Neutrophils Percent Auto 75.3 % (45.5-73.1); Platelet Count Result 279 k/mm3 (150-375); Red Blood Count 3.39 M/mm3 (4.6-6.20); Red Cell Distribution Width 17.2 % (11.5-14.5); White Blood Count 11.3 K/mm3 (4.5-10.0)
[2023-01-16 07:08] LABS: Anion Gap 8 mmol/L (8-16); Blood Urea Nitrogen 22 mg/dL (9-20); Carbon Dioxide 21 mmol/L (22-30); Chloride 105 mmol/L (98-107); Estimated CRCL calculation 83 ml/min; Estimated Glomerular Filt Rate > 60; Glucose 164 mg/dL (65-110); Potassium 5.3 mmol/L (3.4-5.0); Sodium 134 mmol/L (137-145)
--- NOTE | 2023-01-16 07:36 | WPDANESPN ---
Anes - Prog Note Post-Op Date/Time: 01/16/23 07:36 Cardiovascular status: normal Respiratory status: normal Airway patency: baseline Mental status: baseline Post-Op hydration status: normal Vital Signs: Last Vital Signs Temp 97.7 F 01/16/23 06:00 Pulse 60 01/16/23 06:00 Resp 20 01/16/23 06:00 BP 113/57 L 01/16/23 06:00 Pulse Ox 98 01/16/23 06:00 O2 Del Method Room Air 01/15/23 20:00 O2 Flow Rate 8 01/15/23 16:20 Pain Score (VAS): 0 I/O: Intake & Output 01/15/23 01/15/23 01/16/23 15:59 23:59 07:59 Intake Total 5372 826 8948 Output Total 200 500 Balance 7674 483 2395 Laboratory Tests 01/16/23 06:31 01/15/23 01/15/23 01/15/23 07:43 11:13 12:46 WBC RBC Hgb Hct MCV MCH MCHC RDW Plt Count MPV Immature Gran % (Auto) Neut % (Auto) Lymph % (Auto) Parmer % (Auto) Eos % (Auto) Baso % (Auto) Lymph # (Auto) Parmer # (Auto) Eos # (Auto) Baso # (Auto) Abs Immat Gran (auto) Absolute Neuts (auto) Absolute Nucleated RBC Nucleated RBC % Sodium Potassium Chloride Carbon Dioxide Anion Gap BUN Creatinine Estim Creat Clear Calc Estimated GFR Glucose POC Capillary Glucose 127 H 121 H 117 H Calcium 01/15/23 01/15/23 01/16/23 16:30 19:50 03:23 WBC RBC Hgb Hct MCV MCH MCHC RDW Plt Count MPV Immature Gran % (Auto) Neut % (Auto) Lymph % (Auto) Parmer % (Auto) Eos % (Auto) Baso % (Auto) Lymph # (Auto) Parmer # (Auto) Eos # (Auto) Baso # (Auto) Abs Immat Gran (auto) Absolute Neuts (auto) Absolute Nucleated RBC Nucleated RBC % Sodium Potassium Chloride Carbon Dioxide Anion Gap BUN Creatinine Estim Creat Clear Calc Estimated GFR Glucose POC Capillary Glucose 120 H 132 H 200 H Calcium 01/16/23 06:31 WBC Pending RBC Pending Hgb Pending Hct Pending MCV Pending MCH Pending MCHC Pending RDW Pending Plt Count Pending MPV Pending Immature Gran % (Auto) Pending Neut % (Auto) Pending Lymph % (Auto) Pending Parmer % (Auto) Pending Eos % (Auto) Pending Baso % (Auto) Pending Lymph # (Auto) Pending Parmer # (Auto) Pending Eos # (Auto) Pending Baso # (Auto) Pending Abs Immat Gran (auto) Pending Absolute Neuts (auto) Pending Absolute Nucleated RBC Pending Nucleated RBC % Pending Sodium 134 L Potassium 5.3 H Chloride 105 Carbon Dioxide 21 L Anion Gap 8 BUN 22 H Creatinine 1.10 Estim Creat Clear Calc 83 Estimated GFR > 60 Glucose 164 H POC Capillary Glucose Calcium 8.0 L Microbiology 01/11/23 10:00 Foot Right Anaerobic Culture - Preliminary 01/11/23 10:00 Foot Right Aerobic Culture - Preliminary Staphylococcus aureus Post-procedural complaints: none Patient Feedback: Patient satisfied with anesthetic care.
[2023-01-16 07:42] LABS: Hypochromasia 1+ (NORMAL); Platelet Estimate Adequate (Adequate); Poikilocytosis 1+ (NORMAL)
[2023-01-16 07:43] LABS: Anisocytosis 1+ (NORMAL); Schistocytes None Seen (NORMAL)
[2023-01-16 07:59] LABS: Glucose Point of Care 131 mg/dl (65-105)
[2023-01-16] MEDS: EMPAGLIFLOZIN 25 MG TABLET PO (09:30)
[2023-01-16] MEDS: GABAPENTIN 300 MG CAPSULE PO (09:30)
[2023-01-16] MEDS: metFORMIN HCL 500 MG TABLET 1000 MG PO (09:30)
[2023-01-16] MEDS: ASPIRIN 325 MG ENTERIC TABLET PO (09:30)
[2023-01-16] MEDS: METOPROLOL TARTRATE 12.5 MG TABLET PO ×2 (09:30→21:09)
[2023-01-16] MEDS: ENOXAPARIN 40 MG/0.4 ML SYRINGE SUB-Q (10:09)
--- NOTE | 2023-01-16 11:06 | PM.IMPN ---
Progress Note: A&P Assessment and Plan (1) Severe sepsis: Code(s): A41.9 - Sepsis, unspecified organism; R65.20 - Severe sepsis without septic shock Status: Acute (2) Diabetic foot infection: Code(s): E11.628 - Type 2 diabetes mellitus with other skin complications; L08.9 - Local infection of the skin and subcutaneous tissue, unspecified Status: Acute (3) Atrial fibrillation: Qualifiers: Atrial fibrillation type: unspecified Qualified Code(s): I48.91 - Unspecified atrial fibrillation Code(s): I48.91 - Unspecified atrial fibrillation Status: Acute (4) Cellulitis of right foot: Code(s): L03.115 - Cellulitis of right lower limb Status: Acute (5) Chronic anemia: Code(s): D64.9 - Anemia, unspecified Status: Acute (6) Acute renal failure: Code(s): N17.9 - Acute kidney failure, unspecified Status: Acute (7) Uncontrolled type 2 diabetes circulatory disorder erectile dysfunction: Status: Acute (8) Atrial fibrillation with RVR: Code(s): I48.91 - Unspecified atrial fibrillation Status: Acute (9) Lung nodule: Code(s): R91.1 - Solitary pulmonary nodule Status: Acute Plan Sepsis resolved Diabetic ulcer and cellulitis bilateral feet Debridement and graft performed by surgery Continue wound care Continue antibiotics - per surgery AFib RVR No history of AFib RVR Will need to follow up with Cardiology on discharge Uncontrolled type 2 diabetes Hold oral medication Start insulin sliding scale a.c. q.h.s. Acute renal failure Monitor Chronic anemia No obvious bleeding Follow-up CBC Lung nodule 8mm nodule in the superior segment of the left lower lobe. According to Fleischner Society criteria, for a low-risk patient, recommend follow-up CT scan at 6-12 months, then consider additional 18-[address] For a high-risk patients, follow-up CT scans at both 6-12 months and 18-24 months are recommended. Recommend patient to follow-up with primary care doctor Subjective Date/time seen: 01/16/23 11:06 Interval history: no complaints doing well Exam Narrative: GENERAL: Pleasant, in no acute distress. Well-nourished. - EYES: EOMI. Anicteric. - HENT: Moist mucous membranes. - LUNGS: Clear to auscultation bilaterally, no wheezing, rhonchi, or rales. - CARDIOVASCULAR: Regular rhythm. No murmur. No JVD. - ABDOMEN: Soft, non-tender and non-distended. No palpable masses. - EXTREMITIES: No edema. Peripheral pulses 2+. Non-tender. - NEUROLOGIC: No focal neurological deficits. CN II-XII grossly intact. - PSYCHIATRIC: Awake, Alert and oriented x 3. Appropriate mood and affect. - SKIN: Nonhealing ulcer bilateral feet, some purulent discharge from right foot, swelling tender erythema bilateral feet - LYMPH: No cervical lymphadenopathy. Objective Data Vital Signs Vital Signs: Vital Signs - 24 hr 01/15/23 16:14 01/15/23 16:20 01/15/23 16:35 Temperature 97.6 F Pulse Rate 74 68 66 Respiratory Rate 16 14 20 Blood Pressure 100/58 L 100/61 119/59 L Pulse Oximetry 95 98 93 Oxygen Delivery Simple Face Mask Simple Face Mask Room Air Oxygen Flow Rate 8 8 01/15/23 16:50 01/15/23 17:04 01/15/23 17:15 Temperature 96.0 F L Pulse Rate 63 60 72 Respiratory Rate 18 20 18 Blood Pressure 121/63 103/63 124/71 Pulse Oximetry 92 94 94 Oxygen Delivery Room Air Room Air Oxygen Flow Rate 01/15/23 17:30 01/15/23 18:00 01/15/23 12:00 Temperature 96.0 F L 96.1 F L Pulse Rate 66 68 70 Respiratory Rate 18 18 Blood Pressure 133/76 130/73 Pulse Oximetry 97 99 Oxygen Delivery Oxygen Flow Rate 01/15/23 18:58 01/15/23 21:16 01/15/23 21:36 Temperature 96 F L 97.6 F Pulse Rate 71 62 65 Respiratory Rate 18 20 Blood Pressure 134/71 104/61 Pulse Oximetry 97 100 Oxygen Delivery Oxygen Flow Rate 01/16/23 00:16 01/15/23 20:00 01/15/23 20:00 Temperature 97.3 F L
[2023-01-16 11:31] LABS: Glucose Point of Care 177 mg/dl (65-105)
--- NOTE | 2023-01-16 15:26 | PCOTNOTE ---
Attempted to see pt. for occupational therapy session to address current activity limitations and maintaining WB status. Pt. declined at this time. Pt. encouraged and educated on benefits of participation, but requested to be seen at later time. Nursing aware.
--- NOTE | 2023-01-16 15:30 | PCPTNOTE ---
Spoke with GAYE Laguerre regarding pt current functional mobility/meeting goals per functional restrictions that were given. OK given to DC therapy orders at this time.
--- NOTE | 2023-01-16 15:30 | W.PM.PROC2 ---
Procedure Note - Detailed Date of Procedure 01/15/23 Pre-op Diagnosis Bilateral plantar forefoot diabetic wounds Post-op Diagnosis Same Procedure Performed Sharp excisional scalpel debridement of skin and subcutaneous tissue from bilateral plantar surface forefoot wounds with application of bilateral AmnioCord allograft (30 sq cm each foot, 60 sq cm total for bilateral feet). Surgeon Regan Roman MD Motor Over[employer] Alejandro Lim, [facility] Anesthesia General Indications patient is a 62-year-old gentleman who has diabetes and peripheral neuropathy. He suffered bilateral plantar surface forefoot 3rd degree silverio and ended up becoming septic from the wounds. He has undergone previous debridement of the wounds and drainage right foot abscess. He has been on IV antibiotics in the cellulitis and infection has improved. He has granulation tissue at the base of the wounds and presents now for placement of allograft to both wounds to speed healing. Findings The right foot drained abscess cavity is healed well without any purulent drainage. [place] drains were removed from the abscess. Bilateral forefoot buttock wounds have good granulation tissue at the base. No bone or tendon is exposed. Both wounds measure 8cm in length by 4cm in width by 0.5cm in depth on each foot. Small amount of skin and subcutaneous tissue was debrided sharply with scalpel from the edge of the wound on both feet. Description of Procedure After informed consent was obtained patient brought to the operating room was placed supine position and then general LMA anesthesia was administered. The bilateral feet from the mid tibial region distally was then prepped and draped usual sterile fashion circumferentially. A time-out was then performed correctly identifying the patient as well as procedure to be performed verifying this on scheduled IV antibiotics. I 1st removed both of the [place] drains from the lateral aspect of the right foot. I then irrigated out the abscess cavity and there was no purulent drainage. I then measured both wounds on the plantar surfaces of the bilateral forefeet. They both measured 8cm in transverse length by 4cm in vertical with by 0.5cm in depth. Small amount of skin and subcutaneous tissue at the edges of the wounds was sharply debrided with a scalpel and excisional fashion. There was good granulation base of the wound without exposure of tendon or bone. I then proceeded to rough up the granulation tissue at the base of the wound utilizing the bristle side of a sterile scrub brush. I then applied the AmnioCord allografts to both feet. Each graft was 5cm in length by 3cm in width and 2 grafts were applied to each foot. Each foot then had a total of 30 sq cm of allograft applied (60 sq cm total for both feet). The sheets of allograft where secured in the wound by placement of interrupted 3-0 chromic sutures securing the edges of the graft to the edges of the wound circumferentially. Small amount of saline solution was applied to the graft to moisten it and allowed to stick down onto the granulation tissue. I then covered the graft on both feet with Adaptic gauze and then placed dry fluff gauze on top of the Adaptic gauze. Both feet were then wrapped with dry Kerlix gauze and an Ian wrap. The patient tolerated the procedure well no complications. All sponges, needles, and instrument counts were correct at the end procedure. EBL was _5__cc. The patient was awakened and taken to recovery in stable and satisfactory condition. Implants Amnio cord allograft 5x3cm, 2 grafts to each foot for a total of 4 sheets of graft applied to the feet. Estimated Blood Loss -5.0 Urine Output 250 Drains No Packing No Pathology None sent Complications No immediate complications Condition Stable Disposition PACU [facility] Billing Surgery - Charge Forward: Surgery Billing
--- NOTE | 2023-01-16 16:16 | PM.PNGS ---
Progress Note: A&P Assessment and Plan (1) Diabetic foot infection: Code(s): E11.628 - Type 2 diabetes mellitus with other skin complications; L08.9 - Local infection of the skin and subcutaneous tissue, unspecified Status: Acute Assessment and Plan: Patient underwent debridement of the bilateral foot wounds and application of allograft yesterday. We will keep dressings in place until Sunday. Wound cultures grew MSSA, discussed with ID pharmacist and we will deescalate antibiotics by stopping the vancomycin. Continue IV cefepime and Flagyl. Plan to change dressings on Sunday and decide on potentially transitioning to oral antibiotics at that time. Plan I have discussed the patient's case and plan of care with Dr. Roman. Subjective Subjective Date/Time Seen: 01/16/23 16:16 Patient reports: no new complaints and afebrile Interval history: Chart reviewed since last seen. Patient underwent sharp excisional debridement bilateral plantar surface for foot wounds with application of allograft yesterday. Postop dressings to stay in place until Sunday. No new complaints from the patient overnight. Exam Narrative: Bilateral feet with dressings clean dry and intact. Dressings will remain in place until Sunday. Objective Data Vital Signs Vital Signs: Vital Signs - 24 hr 01/15/23 16:20 01/15/23 16:35 01/15/23 16:50 Temperature Pulse Rate 68 66 63 Respiratory Rate 14 20 18 Blood Pressure 100/61 119/59 L 121/63 Pulse Oximetry 98 93 92 Oxygen Delivery Simple Face Mask Room Air Room Air Oxygen Flow Rate 8 01/15/23 17:04 01/15/23 17:15 01/15/23 17:30 Temperature 96.0 F L 96.0 F L Pulse Rate 60 72 66 Respiratory Rate 20 18 18 Blood Pressure 103/63 124/71 133/76 Pulse Oximetry 94 94 97 Oxygen Delivery Room Air Oxygen Flow Rate 01/15/23 18:00 01/15/23 18:58 01/15/23 21:16 Temperature 96.1 F L 96 F L Pulse Rate 68 71 62 Respiratory Rate 18 18 Blood Pressure 130/73 134/71 Pulse Oximetry 99 97 Oxygen Delivery Oxygen Flow Rate 01/15/23 21:36 01/16/23 00:16 01/15/23 20:00 Temperature 97.6 F 97.3 F L Pulse Rate 65 93 78 Respiratory Rate 20 20 Blood Pressure 104/61 123/67 Pulse Oximetry 100 98 Oxygen Delivery Oxygen Flow Rate 01/15/23 20:00 01/16/23 00:00 01/16/23 04:00 Temperature Pulse Rate 68 62 Respiratory Rate Blood Pressure Pulse Oximetry Oxygen Delivery Room Air Oxygen Flow Rate 01/16/23 06:00 01/16/23 08:00 01/16/23 09:30 Temperature 97.7 F 96.1 F L Pulse Rate 60 69 69 Respiratory Rate 20 18 Blood Pressure 113/57 L 120/66 Pulse Oximetry 98 96 Oxygen Delivery Oxygen Flow Rate 01/16/23 08:00 01/16/23 11:05 01/16/23 12:00 Temperature 97.0 F L Pulse Rate 74 58 L Respiratory Rate 18 Blood Pressure 106/71 Pulse Oximetry 98 Oxygen Delivery Room Air Oxygen Flow Rate 01/16/23 08:00 Temperature Pulse Rate 56 L Respiratory Rate Blood Pressure Pulse Oximetry Oxygen Delivery Oxygen Flow Rate Intake/Output Intake/Output: Intake & Output 01/13/23 01/14/23 01/15/23 01/16/23 23:59 23:59 23:59 23:59 Intake Total 2560 3300 2940 2305 Output Total 1150 2475 400 1000 Balance 5112 534 7656 1305 Meds/Results Medications: Active Medications Generic Name Dose Route Start Last Admin Trade Name Freq PRN Reason Stop Dose Admin Acetaminophen 650 mg 01/06/23 17:21 01/11/23 14:12 Acetaminophen 325 Mg Tablet PO 650 mg Q6H PRN Administration Mild Pain (1-3) or Fever Hydrocodone Bitart/Acetaminophen 1 tab 01/11/23 10:48 Hydrocodone/Acetaminophen (*Crx) 5-325 Mg Tablet PO Q4H PRN Pain Rated 4-6 Aspirin 325 mg 01/07/23 09:00 01/16/23 09:30 Aspirin 325 Mg Enteric Tablet PO 325 mg QAM MAURICIO Administration Dextrose 12.5 gm 01/06/23 05:47 Dextrose 50% 25 Gm/50 Ml Syringe IV PUSH PRN PRN Hypoglycemia Protocol Empagliflo
[2023-01-16 16:40] LABS: Glucose Point of Care 153 mg/dl (65-105)
[2023-01-16 22:00] LABS: Glucose Point of Care 166 mg/dl (65-105)
[2023-01-17] VITALS (8 sets, daily range): BP systolic 112–143; BP diastolic 74; PULSE 60–72; RESP 16–18; TEMP 36.1–36.4; O2SAT 95–98
[2023-01-17] MEDS: CEFEPIME 2 GM/NS 50 ML 2 GM/50 ML BAG IVPB ×3 (05:40→21:34)
[2023-01-17] MEDS: metroNIDAZOLE 500 MG/ISO 100ML 500 MG/100 ML BAG 100 MG IVPB ×3 (05:42→21:34)
[2023-01-17 06:46] LABS: Anion Gap 7 mmol/L (8-16); Blood Urea Nitrogen 21 mg/dL (9-20); Calcium 8.4 mg/dL (8.4-10.2); Carbon Dioxide 22 mmol/L (22-30); Chloride 107 mmol/L (98-107); Estimated CRCL calculation 83 ml/min; Estimated Glomerular Filt Rate > 60; Glucose 129 mg/dL (65-110); Potassium 5.6 mmol/L (3.4-5.0); Sodium 136 mmol/L (137-145)
[2023-01-17 07:57] LABS: Glucose Point of Care 118 mg/dl (65-105)
[2023-01-17] MEDS: ENOXAPARIN 40 MG/0.4 ML SYRINGE SUB-Q (09:17)
[2023-01-17] MEDS: metFORMIN HCL 500 MG TABLET 1000 MG PO (09:17)
[2023-01-17] MEDS: METOPROLOL TARTRATE 12.5 MG TABLET PO ×2 (09:17→21:35)
[2023-01-17] MEDS: GABAPENTIN 300 MG CAPSULE PO (09:17)
[2023-01-17] MEDS: EMPAGLIFLOZIN 25 MG TABLET PO (09:18)
--- NOTE | 2023-01-17 10:32 | PM.IMPN ---
Progress Note: A&P Assessment and Plan (1) Severe sepsis: Code(s): A41.9 - Sepsis, unspecified organism; R65.20 - Severe sepsis without septic shock Status: Acute (2) Diabetic foot infection: Code(s): E11.628 - Type 2 diabetes mellitus with other skin complications; L08.9 - Local infection of the skin and subcutaneous tissue, unspecified Status: Acute (3) Atrial fibrillation: Qualifiers: Atrial fibrillation type: unspecified Qualified Code(s): I48.91 - Unspecified atrial fibrillation Code(s): I48.91 - Unspecified atrial fibrillation Status: Acute (4) Cellulitis of right foot: Code(s): L03.115 - Cellulitis of right lower limb Status: Acute (5) Chronic anemia: Code(s): D64.9 - Anemia, unspecified Status: Acute (6) Acute renal failure: Code(s): N17.9 - Acute kidney failure, unspecified Status: Acute (7) Uncontrolled type 2 diabetes circulatory disorder erectile dysfunction: Status: Acute (8) Atrial fibrillation with RVR: Code(s): I48.91 - Unspecified atrial fibrillation Status: Acute (9) Lung nodule: Code(s): R91.1 - Solitary pulmonary nodule Status: Acute Plan Sepsis resolved Diabetic ulcer and cellulitis bilateral feet Debridement and graft performed by surgery Continue wound care Continue antibiotics - per surgery AFib RVR No history of AFib RVR Will need to follow up with Cardiology on discharge Uncontrolled type 2 diabetes Hold oral medication Start insulin sliding scale a.c. q.h.s. Chronic anemia No obvious bleeding Follow-up CBC Lung nodule 8mm nodule in the superior segment of the left lower lobe. According to Fleischner Society criteria, for a low-risk patient, recommend follow-up CT scan at 6-12 months, then consider additional 18-[address] For a high-risk patients, follow-up CT scans at both 6-12 months and 18-24 months are recommended. Recommend patient to follow-up with primary care doctor Subjective Date/time seen: 01/17/23 10:32 Interval history: Improved. No pain in the legs Review of Systems Review of Systems: All systems reviewed & are unremarkable except as noted in HPI and below Exam Narrative: GENERAL: Pleasant, in no acute distress. Well-nourished. - EYES: EOMI. Anicteric. - HENT: Moist mucous membranes. - LUNGS: Clear to auscultation bilaterally, no wheezing, rhonchi, or rales. - CARDIOVASCULAR: Regular rhythm. No murmur. No JVD. - ABDOMEN: Soft, non-tender and non-distended. No palpable masses. - EXTREMITIES: No edema. Peripheral pulses 2+. Non-tender. - NEUROLOGIC: No focal neurological deficits. CN II-XII grossly intact. - PSYCHIATRIC: Awake, Alert and oriented x 3. Appropriate mood and affect. - SKIN: Nonhealing ulcer bilateral feet, some purulent discharge from right foot, swelling tender erythema bilateral feet - LYMPH: No cervical lymphadenopathy. Objective Data Vital Signs Vital Signs: Vital Signs - 24 hr 01/16/23 11:05 01/16/23 12:00 01/16/23 16:00 Temperature 97.0 F L Pulse Rate 74 58 L 65 Respiratory Rate 18 Blood Pressure 106/71 Pulse Oximetry 98 Oxygen Delivery 01/16/23 20:00 01/16/23 22:00 01/16/23 20:00 Temperature 97.4 F L Pulse Rate 70 67 Respiratory Rate 18 Blood Pressure 101/60 Pulse Oximetry 96 Oxygen Delivery Room Air 01/17/23 00:00 01/17/23 04:00 01/17/23 06:00 Temperature 96.9 F L Pulse Rate 66 64 62 Respiratory Rate 16 Blood Pressure 132/74 Pulse Oximetry 95 Oxygen Delivery 01/17/23 09:17 01/17/23 08:00 01/17/23 08:00 Temperature Pulse Rate 62 62 Respiratory Rate Blood Pressure Pulse Oximetry Oxygen Delivery Room Air Intake/Output Intake/Output: Intake & Output 01/14/23 01/15/23 01/16/23 01/17/23 23:59 23:59 23:59 23:59 Intake Total 3300 / 3300 2940 / 2940 3965 / 3965 650 / 650 Output Total 2475 / 2475 400 /
[2023-01-17 11:51] LABS: Glucose Point of Care 168 mg/dl (65-105)
[2023-01-17] MEDS: SODIUM CHLORIDE 0.45% 1,000 ML 75 ML IV CONT (13:11)
--- NOTE | 2023-01-17 13:40 | PM.PNGS ---
Progress Note: A&P Assessment and Plan (1) Diabetic foot infection: Code(s): E11.628 - Type 2 diabetes mellitus with other skin complications; L08.9 - Local infection of the skin and subcutaneous tissue, unspecified Status: Acute Assessment and Plan: Patient underwent debridement of the bilateral foot wounds and application of allograft 2 days ago. We will keep dressings in place until Sunday. Wound cultures grew MSSA. Continue IV cefepime and Flagyl. Plan to change dressings on Sunday and decide on potentially transitioning to oral antibiotics at that time. Plan I have discussed the patient's case and plan of care with Dr. Roman. Subjective Subjective Date/Time Seen: 01/17/23 13:40 Patient reports: no new complaints and afebrile Interval history: Patient seen today after working with physical therapy. No new complaints overnight. Review of Systems Review of Systems: ROS unchanged Exam Narrative: Bilateral feet with dressings clean dry and intact. Dressings will remain in place until Sunday. Objective Data Vital Signs Vital Signs: Vital Signs - 24 hr 01/16/23 16:00 01/16/23 20:00 01/16/23 22:00 Temperature 97.4 F L Pulse Rate 65 70 Respiratory Rate 18 Blood Pressure 101/60 Pulse Oximetry 96 Oxygen Delivery Room Air 01/16/23 20:00 01/17/23 00:00 01/17/23 04:00 Temperature Pulse Rate 67 66 64 Respiratory Rate Blood Pressure Pulse Oximetry Oxygen Delivery 01/17/23 06:00 01/17/23 09:17 01/17/23 08:00 Temperature 96.9 F L Pulse Rate 62 62 62 Respiratory Rate 16 Blood Pressure 132/74 Pulse Oximetry 95 Oxygen Delivery 01/17/23 08:00 Temperature Pulse Rate Respiratory Rate Blood Pressure Pulse Oximetry Oxygen Delivery Room Air Intake/Output Intake/Output: Intake & Output 01/14/23 01/15/23 01/16/23 01/17/23 23:59 23:59 23:59 23:59 Intake Total 3300 2940 3965 1650 Output Total 2475 400 1150 815 Balance 825 2540 2815 835 Meds/Results Medications: Active Medications Generic Name Dose Route Start Last Admin Trade Name Freq PRN Reason Stop Dose Admin Acetaminophen 650 mg 01/06/23 17:21 01/11/23 14:12 Acetaminophen 325 Mg Tablet PO 650 mg Q6H PRN Administration Mild Pain (1-3) or Fever Hydrocodone Bitart/Acetaminophen 1 tab 01/11/23 10:48 Hydrocodone/Acetaminophen (*Crx) 5-325 Mg Tablet PO Q4H PRN Pain Rated 4-6 Aspirin 325 mg 01/07/23 09:00 01/16/23 09:30 Aspirin 325 Mg Enteric Tablet PO 325 mg QAM MAURICIO Administration Dextrose 12.5 gm 01/06/23 05:47 Dextrose 50% 25 Gm/50 Ml Syringe IV PUSH PRN PRN Hypoglycemia Protocol Empagliflozin 25 mg 01/11/23 12:00 01/17/23 09:18 Empagliflozin 25 Mg Tablet PO 25 mg DAILY MAURICIO Administration Enoxaparin Sodium 40 mg 01/07/23 09:00 01/17/23 09:17 Enoxaparin 40 Mg/0.4 Ml Syringe SUB-Q 40 mg DAILY MAURICIO Administration Gabapentin 300 mg 01/07/23 09:00 01/17/23 09:17 Gabapentin 300 Mg Capsule PO 300 mg DAILY MAURICIO Administration Glucagon 1 mg 01/06/23 05:47 Glucagon For Inj 1 Mg Vial IM PRN PRN Hypoglycemia Protocol Glucose 15 gm 01/06/23 05:47 Glucose Oral Gel 15 Gm Of Glucse In 37.5 Gm Tube PO PRN PRN Hypoglycemia Protocol Guaifenesin 600 mg 01/13/23 16:34 01/14/23 08:57 Guaifenesin 12 Hr 600 Mg Tabcr PO 600 mg Q12HR PRN Administration Congestion Dextrose 1,000 mls @ 100 mls/hr 01/06/23 05:47 Dextrose 5% 1,000 Ml IVPB PRN PRN Hypoglycemia Protocol Metronidazole 500 mg in 100 mls @ 100 mls/hr 01/12/23 14:00 01/17/23 13:21 Flagyl 500 Mg/Iso Soln 100 Ml IVPB 100 mls/hr Q8H MAURICIO Administration Cefepime HCl 2 gm in 50 mls @ 100 mls/hr 01/12/23 14:00 01/17/23 13:21 Maxipime 2 Gm/Ns 50 Ml IVPB 100 mls/hr Q8H MAURICIO Administration Sodium Chloride 1,000 mls @ 75 mls/hr
[2023-01-17 16:46] LABS: Glucose Point of Care 155 mg/dl (65-105)
[2023-01-17 21:16] LABS: Glucose Point of Care 164 mg/dl (65-105)
[2023-01-18 04:55] VITALS: BP 130/77; PULSE 64; RESP 18; TEMP 36.4; O2SAT 99
[2023-01-18] MEDS: SODIUM CHLORIDE 0.45% 1,000 ML 75 ML IV CONT ×2 (06:41→22:05)
[2023-01-18] MEDS: CEFEPIME 2 GM/NS 50 ML 2 GM/50 ML BAG IVPB ×3 (06:41→21:04)
[2023-01-18] MEDS: metroNIDAZOLE 500 MG/ISO 100ML 500 MG/100 ML BAG 100 MG IVPB ×3 (06:42→21:04)
[2023-01-18 07:33] LABS: Glucose Point of Care 123 mg/dl (65-105)
[2023-01-18 08:55] VITALS: PULSE 68
[2023-01-18] MEDS: METOPROLOL TARTRATE 12.5 MG TABLET PO ×2 (08:55→21:03)
[2023-01-18] MEDS: metFORMIN HCL 500 MG TABLET 1000 MG PO (08:55)
[2023-01-18] MEDS: ASPIRIN 325 MG ENTERIC TABLET PO (08:56)
[2023-01-18] MEDS: EMPAGLIFLOZIN 25 MG TABLET PO (08:56)
[2023-01-18] MEDS: ENOXAPARIN 40 MG/0.4 ML SYRINGE SUB-Q (08:56)
[2023-01-18] MEDS: GABAPENTIN 300 MG CAPSULE PO (08:56)
--- NOTE | 2023-01-18 11:33 | PM.IMPN ---
Progress Note: A&P Assessment and Plan (1) Severe sepsis: Code(s): A41.9 - Sepsis, unspecified organism; R65.20 - Severe sepsis without septic shock Status: Acute (2) Diabetic foot infection: Code(s): E11.628 - Type 2 diabetes mellitus with other skin complications; L08.9 - Local infection of the skin and subcutaneous tissue, unspecified Status: Acute (3) Atrial fibrillation: Qualifiers: Atrial fibrillation type: unspecified Qualified Code(s): I48.91 - Unspecified atrial fibrillation Code(s): I48.91 - Unspecified atrial fibrillation Status: Acute (4) Cellulitis of right foot: Code(s): L03.115 - Cellulitis of right lower limb Status: Acute (5) Chronic anemia: Code(s): D64.9 - Anemia, unspecified Status: Acute (6) Acute renal failure: Code(s): N17.9 - Acute kidney failure, unspecified Status: Acute (7) Uncontrolled type 2 diabetes circulatory disorder erectile dysfunction: Status: Acute (8) Atrial fibrillation with RVR: Code(s): I48.91 - Unspecified atrial fibrillation Status: Acute (9) Lung nodule: Code(s): R91.1 - Solitary pulmonary nodule Status: Acute Plan Sepsis resolved Diabetic ulcer and cellulitis bilateral feet Debridement and graft performed by surgery Continue wound care Growing MSSA Continue antibiotics - per surgery AFib RVR No history of AFib RVR Will need to follow up with Cardiology on discharge Uncontrolled type 2 diabetes Hold oral medication Start insulin sliding scale a.c. q.h.s. Chronic anemia No obvious bleeding Follow-up CBC Lung nodule 8mm nodule in the superior segment of the left lower lobe. According to Fleischner Society criteria, for a low-risk patient, recommend follow-up CT scan at 6-12 months, then consider additional 18-[address] For a high-risk patients, follow-up CT scans at both 6-12 months and 18-24 months are recommended. Recommend patient to follow-up with primary care doctor Subjective Date/time seen: 01/18/23 11:33 Interval history: Patient states he is feeling better Review of Systems Review of Systems: ROS unchanged Exam Narrative: GENERAL: Pleasant, in no acute distress. Well-nourished. - EYES: EOMI. Anicteric. - HENT: Moist mucous membranes. - LUNGS: Clear to auscultation bilaterally, no wheezing, rhonchi, or rales. - CARDIOVASCULAR: Regular rhythm. No murmur. No JVD. - ABDOMEN: Soft, non-tender and non-distended. No palpable masses. - EXTREMITIES: No edema. Peripheral pulses 2+. Non-tender. - NEUROLOGIC: No focal neurological deficits. CN II-XII grossly intact. - PSYCHIATRIC: Awake, Alert and oriented x 3. Appropriate mood and affect. - SKIN: Nonhealing ulcer bilateral feet, some purulent discharge from right foot, swelling tender erythema bilateral feet - LYMPH: No cervical lymphadenopathy. Objective Data Vital Signs Vital Signs: Vital Signs - 24 hr 01/17/23 14:00 01/17/23 21:21 01/17/23 21:35 Temperature 97.6 F 97.2 F L Pulse Rate 72 60 68 Respiratory Rate 18 17 Blood Pressure 143/74 H 112/74 Pulse Oximetry 98 97 Oxygen Delivery 01/17/23 20:00 01/18/23 04:55 01/18/23 08:55 Temperature 97.5 F L Pulse Rate 64 68 Respiratory Rate 18 Blood Pressure 130/77 Pulse Oximetry 99 Oxygen Delivery Room Air 01/18/23 08:00 Temperature Pulse Rate Respiratory Rate Blood Pressure Pulse Oximetry Oxygen Delivery Room Air Intake/Output Intake/Output: Intake & Output 01/15/23 01/16/23 01/17/23 01/18/23 23:59 23:59 23:59 23:59 Intake Total 2940 / 2940 3965 / 3965 2190 / 2190 1150 / 1150 Output Total 400 / 400 1150 / 1150 1265 / 1265 750 / 750 Balance 2540 / 2540 2815 / 2815 925 / 925 400 / 400 Meds/Results Medications: Active Medications Generic Name Dose Route Start Last Admin Trade Name Freq PRN Reason Stop Dose Admin Acetaminophen 650 mg
[2023-01-18 12:01] LABS: Glucose Point of Care 193 mg/dl (65-105)
[2023-01-18 14:00] VITALS: BP 114/69; PULSE 72; RESP 18; TEMP 36.9; O2SAT 98
--- NOTE | 2023-01-18 14:06 | PM.PNGS ---
Progress Note: A&P Assessment and Plan (1) Diabetic foot infection: Code(s): E11.628 - Type 2 diabetes mellitus with other skin complications; L08.9 - Local infection of the skin and subcutaneous tissue, unspecified Status: Acute Assessment and Plan: Allograft placed on bilateral diabetic foot wounds 2 days ago. Will need at least 5 days of undisturbed dressing prior to looking at the wounds. We will take the dressing down tomorrow and see what hopefully he can be discharged home with a with instructions not to walk on his forefeet. Subjective Subjective Date/Time Seen: 01/18/23 14:06 Interval history: Patient remains clinically stable. No change in his status. He continues to be nonweightbearing on his bilateral forefeet. Exam Extrem: Other: Bilateral feet are dressed. No drainage through the dressing. Objective Data Vital Signs Vital Signs: Vital Signs - 24 hr 01/17/23 21:21 01/17/23 21:35 01/17/23 20:00 Temperature 36.2 C L Pulse Rate 60 68 Respiratory Rate 17 Blood Pressure 112/74 Pulse Oximetry 97 Oxygen Delivery Room Air 01/18/23 04:55 01/18/23 08:55 01/18/23 08:00 Temperature 36.4 C L Pulse Rate 64 68 Respiratory Rate 18 Blood Pressure 130/77 Pulse Oximetry 99 Oxygen Delivery Room Air Intake/Output Intake/Output: Intake & Output 01/15/23 01/16/23 01/17/23 01/18/23 23:59 23:59 23:59 23:59 Intake Total 2940 3965 2190 1150 Output Total 400 1150 1265 750 Balance 2540 2815 925 400 Meds/Results Medications: Active Medications Generic Name Dose Route Start Last Admin Trade Name Freq PRN Reason Stop Dose Admin Acetaminophen 650 mg 01/06/23 17:21 01/11/23 14:12 Acetaminophen 325 Mg Tablet PO 650 mg Q6H PRN Administration Mild Pain (1-3) or Fever Hydrocodone Bitart/Acetaminophen 1 tab 01/11/23 10:48 Hydrocodone/Acetaminophen (*Crx) 5-325 Mg Tablet PO Q4H PRN Pain Rated 4-6 Aspirin 325 mg 01/07/23 09:00 01/18/23 08:56 Aspirin 325 Mg Enteric Tablet PO 325 mg QAM MAURICIO Administration Dextrose 12.5 gm 01/06/23 05:47 Dextrose 50% 25 Gm/50 Ml Syringe IV PUSH PRN PRN Hypoglycemia Protocol Empagliflozin 25 mg 01/11/23 12:00 01/18/23 08:56 Empagliflozin 25 Mg Tablet PO 25 mg DAILY MAURICIO Administration Enoxaparin Sodium 40 mg 01/07/23 09:00 01/18/23 08:56 Enoxaparin 40 Mg/0.4 Ml Syringe SUB-Q 40 mg DAILY MAURICIO Administration Gabapentin 300 mg 01/07/23 09:00 01/18/23 08:56 Gabapentin 300 Mg Capsule PO 300 mg DAILY MAURICIO Administration Glucagon 1 mg 01/06/23 05:47 Glucagon For Inj 1 Mg Vial IM PRN PRN Hypoglycemia Protocol Glucose 15 gm 01/06/23 05:47 Glucose Oral Gel 15 Gm Of Glucse In 37.5 Gm Tube PO PRN PRN Hypoglycemia Protocol Guaifenesin 600 mg 01/13/23 16:34 01/14/23 08:57 Guaifenesin 12 Hr 600 Mg Tabcr PO 600 mg Q12HR PRN Administration Congestion Dextrose 1,000 mls @ 100 mls/hr 01/06/23 05:47 Dextrose 5% 1,000 Ml IVPB PRN PRN Hypoglycemia Protocol Metronidazole 500 mg in 100 mls @ 100 mls/hr 01/12/23 14:00 01/18/23 07:45 Flagyl 500 Mg/Iso Soln 100 Ml IVPB Infused Q8H MAURICIO Infusion Cefepime HCl 2 gm in 50 mls @ 100 mls/hr 01/12/23 14:00 01/18/23 07:15 Maxipime 2 Gm/Ns 50 Ml IVPB Infused Q8H MAURICIO Infusion Sodium Chloride 1,000 mls @ 75 mls/hr 01/14/23 23:55 01/18/23 06:41 Sodium Chloride 0.45% IV CONT 75 mls/hr .[id number] MAURICIO Administration Insulin Aspart 4 - 8 units 01/06/23 08:00 01/18/23 08:55 Insulin Aspart (*Bkc) 100 Units/Ml SUB-Q Not Given TIDWM MAURICIO Protocol Insulin Aspart 2 - 4 units 01/06/23 21:00 01/17/23 21:35 Insulin Aspart (*Bkc) 100 Units/Ml SUB-Q Not Given HS [facility] Protocol Metformin HCl 1,000 mg 01/11/23 12:00 01/18/23 08:55 Metformin Hcl 500 Mg Tablet PO 1,000 mg DAILY MAURICIO
[2023-01-18 17:15] LABS: Glucose Point of Care 125 mg/dl (65-105)
[2023-01-18 20:00] VITALS: PULSE 72; RESP 14; O2SAT 96
[2023-01-18 20:36] LABS: Glucose Point of Care 151 mg/dl (65-105)
[2023-01-18 21:03] VITALS: PULSE 88
[2023-01-18 21:15] VITALS: BP 114/48; PULSE 72; RESP 14; TEMP 36.4; O2SAT 96
[2023-01-19] MEDS: CEFEPIME 2 GM/NS 50 ML 2 GM/50 ML BAG IVPB (05:11)
[2023-01-19 05:17] VITALS: BP 123/66; PULSE 71; RESP 13; TEMP 36.4; O2SAT 98
[2023-01-19] MEDS: metroNIDAZOLE 500 MG/ISO 100ML 500 MG/100 ML BAG 100 MG IVPB (05:50)
[2023-01-19 07:00] LABS: Estimated CRCL calculation 91 ml/min; Estimated Glomerular Filt Rate > 60
[2023-01-19 07:44] LABS: Glucose Point of Care 129 mg/dl (65-105)
[2023-01-19 08:00] VITALS: PULSE 68; RESP 13; O2SAT 98
[2023-01-19] MEDS: metFORMIN HCL 500 MG TABLET 1000 MG PO (08:12)
[2023-01-19] MEDS: ASPIRIN 325 MG ENTERIC TABLET PO (08:12)
[2023-01-19 08:13] VITALS: PULSE 68
[2023-01-19] MEDS: GABAPENTIN 300 MG CAPSULE PO (08:13)
[2023-01-19] MEDS: EMPAGLIFLOZIN 25 MG TABLET PO (08:13)
[2023-01-19] MEDS: METOPROLOL TARTRATE 12.5 MG TABLET PO (08:13)
--- NOTE | 2023-01-19 10:11 | PM.PNGS ---
Progress Note: A&P Assessment and Plan (1) Diabetic foot infection: Code(s): E11.628 - Type 2 diabetes mellitus with other skin complications; L08.9 - Local infection of the skin and subcutaneous tissue, unspecified Status: Acute Assessment and Plan: Bilateral plantar surface forefoot diabetic wounds are healing. Cellulitis and sepsis has resolved. Allografts on the wounds are stable. He can be discharged home today with daily dressing changes normal saline moist to dry gauze. He will need to follow up [facility] next Sunday or to examine the wounds. Home health nurse for wound assessment can be arranged if needed. The current dressing that is on the wounds should stay in place until SundayJanuary 22 and then start daily dressing changes. He was instructed to weightbear mostly on his heels when ambulating and tried to use his scooter as much as possible. Will discharge home with some oral antibiotics. Can be discharged today at discretion of the hospitalist service. Subjective Subjective Date/Time Seen: 01/19/23 10:11 Interval history: Patient without acute changes in status. No complaints. States that his feet feel better. Allograft placed on bilateral plantar surface diabetic wounds 5 days ago. Dressings have not been changed since that time. He continues to be compliant with weight-bearing only on his heels for transfers. Exam Skin: Other: Bilateral forefoot plantar surface wound without any purulent drainage. Excellent granulation tissue at the base. Allograft bilateral feet still in place. No redness or swelling. Grafts appear to be stable. Objective Data Vital Signs Vital Signs: Vital Signs - 24 hr 01/18/23 14:00 01/18/23 21:03 01/18/23 21:15 Temperature 36.9 C 36.4 C L Pulse Rate 72 88 72 Respiratory Rate 18 14 Blood Pressure 114/69 114/48 L Pulse Oximetry 98 96 Oxygen Delivery 01/18/23 20:00 01/19/23 05:17 01/19/23 08:13 Temperature 36.4 C Pulse Rate 72 71 68 Respiratory Rate 14 13 Blood Pressure 123/66 Pulse Oximetry 96 98 Oxygen Delivery Room Air Intake/Output Intake/Output: Intake & Output 01/16/23 01/17/23 01/18/23 01/19/23 23:59 23:59 23:59 23:59 Intake Total 3965 2190 3170 1380 Output Total 1150 1265 1000 1999 Balance 2815 313 7654 -334 Meds/Results Medications: Active Medications Generic Name Dose Route Start Last Admin Trade Name Freq PRN Reason Stop Dose Admin Acetaminophen 650 mg 01/06/23 17:21 01/11/23 14:12 Acetaminophen 325 Mg Tablet PO 650 mg Q6H PRN Administration Mild Pain (1-3) or Fever Hydrocodone Bitart/Acetaminophen 1 tab 01/11/23 10:48 Hydrocodone/Acetaminophen (*Crx) 5-325 Mg Tablet PO Q4H PRN Pain Rated 4-6 Aspirin 325 mg 01/07/23 09:00 01/19/23 08:12 Aspirin 325 Mg Enteric Tablet PO 325 mg QAM MAURICIO Administration Dextrose 12.5 gm 01/06/23 05:47 Dextrose 50% 25 Gm/50 Ml Syringe IV PUSH PRN PRN Hypoglycemia Protocol Empagliflozin 25 mg 01/11/23 12:00 01/19/23 08:13 Empagliflozin 25 Mg Tablet PO 25 mg DAILY MAURICIO Administration Enoxaparin Sodium 40 mg 01/07/23 09:00 01/18/23 08:56 Enoxaparin 40 Mg/0.4 Ml Syringe SUB-Q 40 mg DAILY MAURICIO Administration Gabapentin 300 mg 01/07/23 09:00 01/19/23 08:13 Gabapentin 300 Mg Capsule PO 300 mg DAILY MAURICIO Administration Glucagon 1 mg 01/06/23 05:47 Glucagon For Inj 1 Mg Vial IM PRN PRN Hypoglycemia Protocol Glucose 15 gm 01/06/23 05:47 Glucose Oral Gel 15 Gm Of Glucse In 37.5 Gm Tube PO PRN PRN Hypoglycemia Protocol Guaifenesin 600 mg 01/13/23 16:34 01/14/23 08:57 Guaifenesin 12 Hr 600 Mg Tabcr PO 600 mg Q12HR PRN Administration Congestion Dextrose 1,000 mls @ 100 mls/hr 01/06/23 05:47 Dextrose 5% 1,000 Ml IVPB PRN PRN Hypoglycemia Protocol Metronidaz
--- NOTE | 2023-01-19 10:59 | PM.DS ---
DS: Admitting Diagnosis Discharge Date 01/19/2023 Admitting Diagnosis AFib with RVR Generalized weakness DS: Discharge Diagnosis Discharge Diagnosis (1) Wound, open, foot: Code(s): S91.309A - Unspecified open wound, unspecified foot, initial encounter Status: Acute (2) Atrial fibrillation with RVR: Code(s): I48.91 - Unspecified atrial fibrillation Status: Acute (3) Uncontrolled type 2 diabetes circulatory disorder erectile dysfunction: Status: Acute (4) Acute renal failure: Code(s): N17.9 - Acute kidney failure, unspecified Status: Acute DS: Summary Hospital Course Hospital Course: 62 years old gentleman with history of diabetes, hypertension, diabetic neuropathy, present ED with a chief complaint of general weakness, fall.? Patient has diabetic neuropathy, and has nonhealing ulcer bilateral feet about 4 weeks.? Patient states he walks on hot, concrete wrote about 4 wks ago, and sustained for of bilateral feet.? Later on patient developed ulcer bilateral feet.? Patient follow-up with wound care and wound surgeon.? Patient underwent debridement.? Patient finished antibiotics about 4 days ago.? Patient fell and could not stand up because of general weakness.? Patient was brought to ED for evaluation, in the ED, patient was found to have AFib with RVR.? Patient denies history of AFib.? And patient was also found have fever 101.7.? CBC with leukocytosis to 15.2.? Also shows normocytic anemia with hemoglobin of 7.3.? Metabolic panel with hyperglycemia.? Initial lactic acid elevated at 2.8, this did normalize after hydration.? CRP is elevated at 22.2.? UA without evidence of infection.? Influenza and COVID screens are negative.? Chest x-ray shows mild atelectasis.? Bilateral foot x-rays are without evidence of osteomyelitis.? CT scan of the brain is without acute findings.? EKG shows atrial fibrillation.? CT scan of the right foot obtained due to soft tissue gas seen on x-ray.? Cardiology was consulted. Patient was started on heparin drip. He converted to sinus rhythm spontaneously. Probably due to sepsis and less likely anemia. [id number] 1. On aspirin 325 mg daily. On Metoprolol Tartate 12.5 mg BID for rate control. 01/06/23 Echo: EF 60-65%, diastolic dysfunction (E/e' 13), mod LAE, mild DAGO, mild TR. General surgery was consulted for diabetic foot ulcer. Patient underwent debridement. Cultures grew MSSA. Patient was started on cefepime. ?Bilateral plantar surface forefoot diabetic wounds are healing.? Cellulitis and sepsis has resolved. ? Allografts on the wounds are stable.? He can be discharged home today with daily dressing changes? normal saline moist to dry gauze.? He will need to follow up in the Wound Care Clinic next Sunday or to examine the wounds.? Home health nurse for wound assessment can be arranged if needed.? ? The current dressing that is on the wounds should stay in place until SundayJanuary 22 and then start daily dressing changes.? He was instructed to weightbear mostly on his heels when ambulating and tried to use his scooter as much as possible.? Time Spent with Patient Time attestation: Total time spent providing and/or coordinating discharge services: DS: Data Data Completed and Pending Labs on day of discharge: Labs from last 24 hours 01/19/23 01/19/23 01/18/23 07:16 06:23 19:38 Creatinine 1.00 Estim Creat Clear Calc 91 Estimated GFR > 60 POC Capillary Glucose 129 H 151 H 01/18/23 01/18/23 17:00 11:46 Creatinine Estim Creat Clear Calc Estimated GFR POC Capillary Glucose 125 H 193 H Discharge Plan Discharge Consulting providers: Glenda Zarate; Felicia Laws; Sagar Hernandez Discharging Clinician: Keo Cantu Anticipated Discharge Date/Time: 01/19/23 10:57 Patient Disposition: Home Health Service Activity: other - see discharge instructions Diet: diabetic Wound Care Instructions: other - see discharge
[2023-01-19 11:30] LABS: Glucose Point of Care 122 mg/dl (65-105)
== END 2023-01-19 14:26 | disposition home health service (06) | DRG 854 ==
LOC: ANHED 01-06 05:58 → ANH3MEDSUR 01-06 07:36
PROVIDERS: Chiropractor; Emergency Medicine; Hospitalist; Student in an Organized Health Care Education/Training Program; Surgery; Admitting Provider Internal Medicine; Emergency Provider Physician Assistant; PCP Student in an Organized Health Care Education/Training Program; Visit Provider Hospitalist
PROC: 0JBQ0ZZ Excision of Right Foot Subcutaneous Tissue and Fascia, Open Approach (ICD-10-PCS; principal; 2023-01-11 09:30)
PROC: 0JBR0ZZ Excision of Left Foot Subcutaneous Tissue and Fascia, Open Approach (ICD-10-PCS; principal; 2023-01-15 14:30)
DX: A41.9 Sepsis, unspecified organism (principal); L02.611 Cutaneous abscess of right foot; L03.115 Cellulitis of right lower limb; N17.9 Acute kidney failure, unspecified; L03.116 Cellulitis of left lower limb; R65.20 Severe sepsis without septic shock; E11.628 Type 2 diabetes mellitus with other skin complications; E11.621 Type 2 diabetes mellitus with foot ulcer; L97.519 Non-pressure chronic ulcer of other part of right foot with unspecified severity; L97.529 Non-pressure chronic ulcer of other part of left foot with unspecified severity; B95.61 Methicillin susceptible Staphylococcus aureus infection as the cause of diseases classified elsewhere; B95.1 Streptococcus, group B, as the cause of diseases classified elsewhere; I48.91 Unspecified atrial fibrillation; D64.9 Anemia, unspecified; E11.42 Type 2 diabetes mellitus with diabetic polyneuropathy; I10 Essential (primary) hypertension; E11.65 Type 2 diabetes mellitus with hyperglycemia; G47.33 Obstructive sleep apnea (adult) (pediatric); E66.9 Obesity, unspecified; Z68.37 Body mass index [BMI] 37.0-37.9, adult; W19.XXXA Unspecified fall, initial encounter; R91.1 Solitary pulmonary nodule; T79.2XXS Traumatic secondary and recurrent hemorrhage and seroma, sequela; T25.32 Burn of third degree of foot; X19.XXXS Contact with other heat and hot substances, sequela; Z20.822 Contact with and (suspected) exposure to COVID-19
CPT/HCPCS: 36415; 70450; 71045; 71275; 73620; 73700; 73701; 80048; 80053; 80202; 81003; 82274; 82565; 82728; 82948; 83036; 83540; 83550; 83605; 83690; 83880; 84484; 85014; 85018; 85025; 85610; 85730; 86140; 87040; 87070; 87075; 87147; 87186; 87205; 87636; 93005; 93970; 96361; 96365; 96366; 96367; 96372; 96375; 96376; 97161; 97165; 97530; 99285; A9270; C8929; G0378; J0692; J1644; J1650; J1815; J1836; J2250; J2405; J2700; J2704; J3010; J3370; J7030; J7120; Q9957; Q9967

== ENCOUNTER 2023-04-20 07:42 | Outpatient (RCR) | payer OTHER, SELFPAY ==
[2023-01-24 12:28] VITALS: BMI 37.8
--- NOTE | 2023-01-25 12:38 | PM.PNGS ---
Progress Note: A&P Assessment and Plan (1) Diabetic foot infection: Code(s): E11.628 - Type 2 diabetes mellitus with other skin complications; L08.9 - Local infection of the skin and subcutaneous tissue, unspecified Status: Acute Assessment and Plan: The bilateral plantar fore foot diabetic wounds are progressing nicely. There was very good granulation response to application of the allograft last week. There is no necrotic tissue at the base. The depth of the wound has markedly decreased with minimal decrease in the with or length of the wound. Since he had a very good response to the allograft I have recommended another application of allograft. He is agreeable to this procedure we will bring him into the outpatient surgery area to have this done later this week. Subjective Subjective Date/Time Seen: 01/25/23 12:38 Interval history: Patient is seen back in the Wound Care Clinic today for his bilateral plantar forefoot diabetic wounds. He had application allograft to both wounds about a week ago. He has no complaints. His blood sugars have been in the 100 to 120 range. He states he has been keeping office feet except transfer to motorized scooter. Exam Extrem: Other: The right plantar forefoot wound now measures 6.8cm in transverse length by 4cm in the vertical with by 1cm maximal depth the left plantar forefoot wound measures 7cm in transverse length by 3.5cm in vertical with an 0.4cm in maximal depth. There is significant growth of granulation tissue in the base. Both wounds have no necrotic tissue within them. The patient is able to move all of his toes on both feet and minimal swelling of the bilateral feet are noted.
--- NOTE | 2023-02-15 14:32 | PM.PNGS ---
Progress Note: A&P Assessment and Plan (1) Wound, open, foot: Code(s): S91.309A - Unspecified open wound, unspecified foot, initial encounter Status: Acute Assessment and Plan: Patient continues to heal his but bilateral diabetic plantar surface foot wounds. There is a small amount of greenish drainage from the left foot suggestive of possible Pseudomonas Colonization. Will dressed with some silver impregnated dressings for now. Still waiting for approval from his insurance company to see if we can apply allografts as an outpatient and get the allograft covered by the insurance. If that is not approved then next best step may be to do a formal partial thickness skin graft to the bilateral foot wounds. We will see the patient back in the office in 2 weeks. Subjective Subjective Date/Time Seen: 02/07/23 Interval history: Patient was seen in the Wound Care Clinic for follow-up all of his bilateral diabetic foot wounds by me on February 07, 2023. He has been doing local wound dressing changes to the bilateral wounds. He had excellent response to application allograft to the wounds to promote healing of the wounds. We are still trying to get approval for application of another allograft as an outpatient procedure. Exam Extrem: Other: The right plantar surface foot wound now measures 3cm in vertical with by 7cm in transverse length and is 1.5cm in depth. There is excellent granulation tissue throughout the whole wound base. Between the 4th and 5th toes there is a small 1.5x 1cm opening where the abscess was previously drained. There is no spreading redness up the right foot and no evidence of cellulitis. The left plantar surface foot wound now measures 4cm in vertical length by 6cm in transverse with by 1.3cm in maximal depth. It also has very good to excellent granulation tissue at the base and starting to contract. No necrotic tissue was noted. Objective Data Meds/Results Medications: Active Medications Generic Name Dose Route Start Last Admin Trade Name Freq PRN Reason Stop Dose Admin Silver Nitrate 1 applic 02/07/23 09:00 Silvergel (Elta) 45 Ml TOPICAL 05/10/23 23:55 PRN PRN Wound Care
--- NOTE | 2023-02-22 12:01 | PM.PNGS ---
Progress Note: A&P Assessment and Plan (1) Wound, open, foot: Code(s): S91.309A - Unspecified open wound, unspecified foot, initial encounter Status: Acute Assessment and Plan: The bilateral plantar surface diabetic foot wounds are continuing to heal slowly. There has been about a 1cm further contraction of the wound at the edges on both feet. There is no depth to the wounds now. I did discuss with him the option of performing skin grafts on the wound an effort to help them heal faster I will allow him to get back to work and walk faster. At this point he does not really want to undergo any additional surgical procedures. He is comfortable with the current rate of healing. We will continue to dress the wounds and keep him nonweightbearing on is forefeet. Follow-up again the wound clinic in 2 weeks. (2) Diabetic foot infection: Code(s): E11.628 - Type 2 diabetes mellitus with other skin complications; L08.9 - Local infection of the skin and subcutaneous tissue, unspecified Status: Acute Assessment and Plan: Continue present diabetes medications. Blood sugars are much better controlled. Subjective Subjective Date/Time Seen: 02/22/23 12:01 Interval history: Patient returns for a 2 week interval evaluation is bilateral plantar surface forefoot diabetic wounds. He was seen in the [facility]. He has been compliant with not walking and putting pressure on his bilateral forefeet. He has no new complaints. Exam Extrem: Other: The right plantar surface forefoot wound now measures 6cm in transverse length by 2.5cm in vertical with. There is excellent granulation tissue at the base. There is no depth to the wound now and the wound is matthew at the edges. The left forefoot plantar surface wound measures 6cm in transverse length by 3cm and vertical with. This wound again has excellent granulation tissue at the base and no depth to the wound and traction of the wound with new skin growth at the edges. There is no greenish drainage to suggest Pseudomonas infection. Objective Data Meds/Results Medications: Active Medications Generic Name Dose Route Start Last Admin Trade Name Freq PRN Reason Stop Dose Admin Silver Nitrate 1 applic 02/07/23 09:00 Silvergel (Elta) 45 Ml TOPICAL 05/10/23 23:55 PRN PRN Wound Care
--- NOTE | 2023-03-08 10:13 | PM.PNGS ---
Progress Note: A&P Assessment and Plan (1) Wound, open, foot: Code(s): S91.309A - Unspecified open wound, unspecified foot, initial encounter Status: Acute Assessment and Plan: The bilateral plantar surface diabetic foot wounds are healing well. He continues to be compliant with nonweightbearing on his feet and taking good care of the wounds with local wound care. His diabetes is under better control now. Continue present management of the foot wounds and allow them to continue to heal by secondary intention. We will see him back in the wound care clinic in 2 weeks. (2) Uncontrolled type 2 diabetes circulatory disorder erectile dysfunction: Status: Acute Assessment and Plan: Continue present management per the patient's primary care physician. He has better control of his diabetes. Subjective Subjective Date/Time Seen: March 07, 2023 Interval history: Patient is seen again today in the [facility] for follow-up with bilateral buttock plantar surface foot wounds. He is doing very well and continues to be compliant with nonweightbearing on the bilateral forefeet. He states that the pain in the lower extremities is much improved. His blood sugars are under much better control his hemoglobin A1c is down to below 8. Review of Systems Review of Systems: The remainder of the review of systems to include constitutional, HEENT, cardiovascular, respiratory, GI, , integumentary, musculoskeletal, endocrine, immunologic, hematologic, psychiatric, and neurologic are all negative except for which is mentioned above in the HPI. Exam Extrem: Other: The bilateral feet have minimal swelling. On the left plantar surface of the foot the wound now measures 2.3x4.2x0.2cm. The right plantar so surface foot wound is 2 x 5.5x0.2cm. Both wounds excellent granulation tissue which is at the level of the skin edges. There was excellent progression of new skin growth over the granulation tissue. No greenish drainage or purulent drainage is noted. He does still have a opening in the prior draining sinus tract between the right 4th and 5th toes measuring 1x0.6x1.5cm. Objective Data Meds/Results Medications: Active Medications Generic Name Dose Route Start Last Admin Trade Name Freq PRN Reason Stop Dose Admin Silver Nitrate 1 applic 02/07/23 09:00 Silvergel (Elta) 45 Ml TOPICAL 05/10/23 23:55 PRN PRN Wound Care
--- NOTE | 2023-03-21 13:23 | P.PNGS_ITS ---
Progress Note: A&P Assessment and Plan (1) Wound, open, foot: Code(s): S91.309A - Unspecified open wound, unspecified foot, initial encounter Status: Acute Assessment and Plan: Bilateral plantar surface forefoot wounds are continuing to heal well with the current wound care dressings. In the last 2 weeks there has been contraction of about 1 cm. I think that within the next month, there could be full coverage of the wound with new skin. Continue nonweightbearing status on the forefeet for now and same wound care dressings. Follow-up in the office in 2 weeks. Subjective Subjective Date/Time Seen: 03/21/23 13:23 Interval history: Patient returns to the [facility] for a 2 week interval follow-up on his bilateral plantar surface forefoot diabetic foot wounds. He has no complaints. She continues to be very compliant with not walking and weight-bearing only on his feet to transfer. Blood sugars are well controlled in the 110 to 130 range. Exam Skin: Other: The left plantar surface forefoot wound now measures 2 cm in vertical with by 3cm in transverse length by 0.1cm in depth. Excellent granulation tissue was noted and no cellulitis is noted. The right plantar surface forefoot wound now measures 2.3cm in vertical with by 4.5cm in transverse length by 0.2cm in depth. Again there is excellent granulation tissue noted. The tunneling tract and the right 5th toe measures 1cm by 0.5rjdzw5.8cm. Minimal serous drainage and no cellulitis. Objective Data Meds/Results Medications: Active Medications Generic Name Dose Route Start Last Admin Trade Name Freq PRN Reason Stop Dose Admin Silver Nitrate 1 applic 02/07/23 09:00 Silvergel (Elta) 45 Ml TOPICAL 05/10/23 23:55 PRN PRN Wound Care
--- NOTE | 2023-04-06 15:03 | PM.PNGS ---
Progress Note: A&P Assessment and Plan (1) Wound, open, foot: Code(s): S91.309A - Unspecified open wound, unspecified foot, initial encounter Status: Acute Assessment and Plan: Continue present management for localized wound care for the bilateral forefoot plantar surface diabetic foot wounds. They are slowly healing by secondary intention. Continue nonweightbearing status on bilateral feet. (2) Diabetic foot infection: Code(s): E11.628 - Type 2 diabetes mellitus with other skin complications; L08.9 - Local infection of the skin and subcutaneous tissue, unspecified Status: Acute Assessment and Plan: As above. Subjective Subjective Date/Time Seen: 04/06/23 15:03 Interval history: Patient returns to the Wound Care Clinic today for 2 week interval follow-up on his bilateral plantar forefeet diabetic wounds. He has no particular complaints today. He continues to be nonweightbearing on the bilateral forefeet. Exam Skin: Other: Wound on the left plantar surface of the foot now measures 0.5x2.1x0.2cm. There is excellent granulation tissue noted and there is definite keep growth to do skin contraction since the last visit 2 weeks ago. The right plantar foot ulcer is a little larger than the left. It now measures 2.3x4.5x0.2cm. It also has good granulation tissue noted at the base but a little less new skin growth. There is no necrotic tissue. On the dorsal aspect of the forefoot there is still a small wound opening from the prior abscess drainage measures 1x1x1.7cm. Objective Data Meds/Results Medications: Active Medications Generic Name Dose Route Start Last Admin Trade Name Freq PRN Reason Stop Dose Admin Silver Nitrate 1 applic 02/07/23 09:00 Silvergel (Elta) 45 Ml TOPICAL 05/10/23 23:55 PRN PRN Wound Care
--- NOTE | 2023-04-17 09:24 | PCWOUND ---
WOCN NOTE patient did not show up today for appointment, rescheduled for Sunday.
--- NOTE | 2023-04-20 10:47 | PM.PNGS ---
Progress Note: A&P Assessment and Plan (1) Diabetic foot infection: Code(s): E11.628 - Type 2 diabetes mellitus with other skin complications; L08.9 - Local infection of the skin and subcutaneous tissue, unspecified Status: Acute Assessment and Plan: Bilateral foot wounds are healing very well. I would expect the left foot wound to likely close within the next 2 to 4 weeks. The right foot wound will take a little longer to close likely. Once the left foot wound is closed I think he can or thick sock and an orthotic shoe and weight bear on the left foot. Was still likely need to be nonweightbearing on his right foot until that wound completely closes. Continue current wound dressings and care. Will see him back in the Wound Care Clinic in about 3 weeks. Subjective Subjective Date/Time Seen: 04/20/23 10:47 Interval history: Patient continues do well. He follows up today in the [facility] for a 2 week interval check on his bilateral forefeet plantar surface diabetic wounds. He continues to be compliant with being nonweightbearing on the bilateral except for transfers. Continues to wrap the legs feet daily. He is in the process of applying for medical disability from his job. That decision is still pending. Exam Extrem: Other: The right plantar forefoot wound is now 2.3x3.8x0.2cm. There is a small wound in the skin fold between the 4th and 5th toes measuring 0.5x0.8x0.6cm. Both of these wounds excellent granulation tissue and is matthew very well. The left plantar surface diabetic forefoot wound now measures 1.0x2.0x0.2cm. This wound is nearly closed and is healing very well with excellent granulation tissue at the base and matthew quickly. No swelling in the bilateral lower extremities or feet. Objective Data Meds/Results Medications: Active Medications Generic Name Dose Route Start Last Admin Trade Name Freq PRN Reason Stop Dose Admin Silver Nitrate 1 applic 02/07/23 09:00 Silvergel (Elta) 45 Ml TOPICAL 05/10/23 23:55 PRN PRN Wound Care
--- NOTE | 2023-05-04 09:53 | PCWOUND ---
WOCN NOTE Patient insurance and new insurance does not cover [facility]. patient is going to other providers for care.
== END 2023-04-24 23:59 | disposition home or self-care (01) ==
LOC: ANHWOC 07:42
PROVIDERS: Visit Provider Surgery
DX: Z48.00 Encounter for change or removal of nonsurgical wound dressing (principal); E11.621 Type 2 diabetes mellitus with foot ulcer; L97.419 Non-pressure chronic ulcer of right heel and midfoot with unspecified severity; L97.429 Non-pressure chronic ulcer of left heel and midfoot with unspecified severity
CPT/HCPCS: 99213; 99214; G0463